=== PATIENT | female | born 1985 | race Two or more races ===

== ENCOUNTER 2020-09-12 13:50 | Outpatient (REF) | payer OTHER, MEDICAID, SELFPAY ==
--- NOTE | 2020-09-12 13:57 | MM_ITS ---
EXAMINATION: MM SCREENING DIGITAL BREAST TOMOSYNTHESIS, BILATERAL CLINICAL INFORMATION: Screening. Asymptomatic. Family history breast cancer sister, age 31, and aunt. The lifetime risk of breast cancer based on the Tyrer-Cuzick Model is 19%. COMPARISON: Mammography: 07/21/2017 (baseline) TECHNIQUE: Digital breast tomosynthesis is performed in both the craniocaudal and mediolateral oblique views along with computer-aided detection (CAD). Synthesized 2D images are generated from the tomosynthesis. FINDINGS: There are scattered areas of fibroglandular density (ACR BI-RADS breast composition Category b). There are no significant masses, abnormal calcifications, or other abnormalities. The axilla and skin contours are unremarkable. MM/MM tomosynthesis screening BI IMPRESSION: No mammographic evidence of malignancy. ASSESSMENT: BI-RADS 1: Negative RECOMMENDATION: Routine annual mammography screening. This patient's information was entered into a reminder system with a target due date for their next mammogram.
== END 2020-09-12 13:51 | disposition home or self-care (01) ==
LOC: HO.MAMMO 13:50
PROVIDERS: PCP Internal Medicine; Visit Provider Internal Medicine
DX: Z12.31 Encounter for screening mammogram for malignant neoplasm of breast (principal)
CPT/HCPCS: 77063; 77067

== ENCOUNTER 2021-08-16 07:15 | Outpatient (REF) | payer OTHER, MEDICAID, SELFPAY ==
[2021-08-16 08:25] LABS: MANUAL DIFF FLAG NO
[2021-08-16 08:31] LABS: Basophils Percent Auto 0.7 % (0-2); Eosinophils Absolute Auto 0.1 X10*3/uL (0.0-0.4); Eosinophils Percent Auto 1.2 % (0-4); Hematocrit 34.5 % (37-47); Hemoglobin 10.9 g/dl (12.0-16.0); Imm Gran Abs Auto 0.02 X10*3/uL (0.00-0.03); Imm Gran Pct Auto 0.3 % (0.0-0.4); Lymphocytes Absolute Auto 2.1 X10*3/uL (1.2-4.9); Lymphocytes Percent Auto 35.1 % (20-40); Mean Corpuscular HGB Conc 31.6 g/dl (31.0-35.0); Mean Corpuscular Hemoglobin 25.6 pg (27.0-33.0); Mean Platelet Volume 9.8 fL (9.4-12.3); Monocytes Absolute Auto 0.2 X10*3/uL (0.1-1.2); Monocytes Percent Auto 3.5 % (2-11); Neutrophils Absolute Auto 3.6 X10*3/uL (2.0-8.3); Neutrophils Percent Auto 59.2 % (45-73); Platelet Count 273 X10*3/uL (160-400); Red Blood Count 4.26 X10*6/uL (4.20-5.50); Red Cell Distribution Width 14.9 % (11.0-16.0)
[2021-08-16 09:06] LABS: Alanine Aminotransferase 13 U/L (0-31); Albumin Level 4.1 g/dL (3.5-5.0); Alkaline Phosphatase 65 U/L (39-117); Anion Gap 11 (12-20); Aspartate Amino Transferase 17 U/L (5-31); Bilirubin Total 0.9 mg/dL (0.0-1.0); Blood Urea Nitrogen 17 mg/dL (9-16); Calcium 8.9 mg/dL (8.4-10.2); Carbon Dioxide 22 mmol/L (22-29); Chloride 111 mmol/L (96-108); Cholesterol 221 mg/dL; Estimated Glomerular Filt Rate > 60; Glucose Random 90 mg/dL (60-115); HDL Cholesterol 58 mg/dL; LDL Cholesterol Calculated 153 mg/dl; Potassium 4.5 mmol/L (3.3-5.1); Sodium 139 mmol/L (135-145); Total Protein 7.4 g/dL (6.5-8.0); Triglycerides 53 mg/dL
[2021-08-16 09:18] LABS: Free T4 (Free Thyroxine) 1.03 ng/dL (0.71-1.85); Thyroid Stimulating Hormone 1.04 uIU/mL (0.32-4.0); Vitamin D 25-OH Total 23.1 ng/mL (>30)
[2021-08-18 09:26] LABS: Folate 8.3 ng/mL (> or = 4.0); Vitamin B12 358 pg/mL (200-900)
== END 2021-08-16 07:16 | disposition home or self-care (01) ==
LOC: HO.LAB 07:15
PROVIDERS: PCP Internal Medicine; Visit Provider Internal Medicine
DX: E03.9 Hypothyroidism, unspecified (principal); E78.00 Pure hypercholesterolemia, unspecified
CPT/HCPCS: 36415; 80053; 80061; 82306; 82607; 82746; 84439; 84443; 85025

== ENCOUNTER 2021-09-24 15:32 | Outpatient (REF) | payer OTHER, MEDICAID, SELFPAY ==
--- NOTE | ~2021-09-24 | MM_ITS ---
EXAMINATION: MM SCREENING DIGITAL BREAST TOMOSYNTHESIS, BILATERAL CLINICAL INFORMATION: Screening. Asymptomatic. Family history premenopausal breast cancer, sister. The lifetime risk of breast cancer based on the Tyrer-Cuzick Model is 13%. COMPARISON: Mammography: 09/12/2020, 07/21/2017 (baseline). TECHNIQUE: Digital breast tomosynthesis is performed in both the craniocaudal and mediolateral oblique views along with computer-aided detection (CAD). Synthesized 2D images are generated from the tomosynthesis. FINDINGS: There are scattered areas of fibroglandular density (ACR BI-RADS breast composition Category b). There are no significant masses, abnormal calcifications, or other abnormalities. Parenchymal pattern is similar to prior study. The axilla and skin contours are unremarkable. MM/MM tomosynthesis screening BI IMPRESSION: No mammographic evidence of malignancy. ASSESSMENT: BI-RADS 1: Negative RECOMMENDATION: Routine annual mammography screening. This patient's information was entered into a reminder system with a target due date for their next mammogram.
== END 2021-09-24 15:33 | disposition home or self-care (01) ==
LOC: HO.MAMMO 15:32
PROVIDERS: Visit Provider Internal Medicine
DX: Z12.31 Encounter for screening mammogram for malignant neoplasm of breast (principal)
CPT/HCPCS: 77063; 77067

== ENCOUNTER → 2022-01-20 15:49 | Outpatient (BNVA) | payer OTHER, MEDICAID, SELFPAY | PROVIDERS: PCP Internal Medicine; Visit Provider Physician Assistant Surgical ==

== ENCOUNTER → 2022-01-21 08:16 | Outpatient (BNVA) | payer OTHER, MEDICAID, SELFPAY | PROVIDERS: PCP Internal Medicine; Visit Provider Physician Assistant Surgical ==

== ENCOUNTER → 2022-02-04 11:00 | Outpatient (BNVA) | payer OTHER, MEDICAID, SELFPAY | PROVIDERS: PCP Internal Medicine; Visit Provider Counselor Mental Health | DX: Z13.89 Encounter for screening for other disorder (principal) ==

== ENCOUNTER → 2022-02-12 08:22 | Outpatient (BNVA) | payer OTHER, MEDICAID, SELFPAY | PROVIDERS: PCP Internal Medicine; Visit Provider Dietitian, Registered | DX: E66.01 Morbid (severe) obesity due to excess calories (principal); Z68.41 Body mass index [BMI] 40.0-44.9, adult | CPT/HCPCS: 97802 ==

== ENCOUNTER 2022-02-18 | Outpatient (REF) | payer OTHER, MEDICAID, SELFPAY ==
[2022-02-21 15:25] LABS: H Pylori Breath Test Positive (Negative)
== END 2022-02-18 00:01 | disposition home or self-care (01) ==
LOC: HO.LNP
PROVIDERS: Physician Assistant Surgical; Visit Provider Surgery
DX: E66.01 Morbid (severe) obesity due to excess calories (principal); Z11.0 Encounter for screening for intestinal infectious diseases
CPT/HCPCS: 36415; 83013

== ENCOUNTER → 2022-02-18 15:50 | Outpatient (BNVA) | payer OTHER, MEDICAID, SELFPAY | PROVIDERS: PCP Internal Medicine; Visit Provider Surgery | DX: Z13.89 Encounter for screening for other disorder (principal) | CPT/HCPCS: 36415 ==

== ENCOUNTER 2022-02-19 07:14 | Outpatient (REF) | payer OTHER, MEDICAID, SELFPAY ==
--- NOTE | ~2022-02-19 | XR_ITS ---
EXAMINATION: XR CHEST 2 VIEWS CLINICAL INFORMATION: Morbid obesity. COMPARISON: None. TECHNIQUE: Frontal and lateral views of the chest were obtained. FINDINGS: The heart, great vessels, pulmonary vasculature and mediastinum are normal. The lungs show no focal infiltrate, effusion or pneumothorax. There is no acute osseous abnormality. XR/XR chest 2V IMPRESSION: No active cardiopulmonary disease.
--- NOTE | 2022-02-19 07:20 | ECG_ITS ---
Test Reason : e66.01 Blood Pressure : / mmHG Vent. Rate : 069 BPM Atrial Rate : 069 BPM P-R Int : 148 ms QRS Dur : 084 ms QT Int : 398 ms P-R-T Axes : 042 012 044 degrees QTc Int : 426 ms Normal sinus rhythm Normal ECG No previous ECGs available Referred By: Aiden Dunlap Electronically Signed By:YURIY AGUILLON
[2022-02-19 07:46] LABS: MANUAL DIFF FLAG NO
[2022-02-19 08:06] LABS: Estimated Average Glucose 100 mg/dL; Hemoglobin A1c % 5.1 %
[2022-02-19 08:16] LABS: Basophils Percent Auto 0.8 % (0-2); Eosinophils Absolute Auto 0.1 X10*3/uL (0.0-0.4); Eosinophils Percent Auto 1.8 % (0-4); Hematocrit 36.4 % (37.0-47.0); Hemoglobin 11.7 g/dl (12.0-16.0); Imm Gran Abs Auto 0.01 X10*3/uL (0.00-0.03); Imm Gran Pct Auto 0.3 % (0.0-0.4); Immature Retic Fraction 6.5 % (3.0-15.9); Lymphocytes Absolute Auto 1.4 X10*3/uL (1.2-4.9); Lymphocytes Percent Auto 35.2 % (20-40); Mean Corpuscular HGB Conc 32.1 g/dl (31.0-35.0); Mean Corpuscular Hemoglobin 26.6 pg (27.0-33.0); Mean Corpuscular Volume 82.7 fL (80.0-98.0); Mean Platelet Volume 9.9 fL (9.4-12.3); Monocytes Absolute Auto 0.2 X10*3/uL (0.1-1.2); Monocytes Percent Auto 5.9 % (2-11); Neutrophils Absolute Auto 2.2 x10*3/uL (2.0-8.3); Platelet Count 248 X10*3/uL (160-400); Red Cell Distribution Width 15.9 % (11.0-16.0); Reticulocyte Percent 0.9 % (0.5-1.8); White Blood Count 3.9 X10*3/uL (4.8-10.8)
[2022-02-19 08:23] LABS: Alanine Aminotransferase 27 U/L (0-31); Albumin Level 4.1 g/dL (3.5-5.0); Alkaline Phosphatase 54 U/L (39-117); Anion Gap 9 (12-20); Aspartate Amino Transferase 24 U/L (5-31); Bilirubin Total 0.9 mg/dL (0.0-1.0); Blood Urea Nitrogen 21 mg/dL (9-16); Calcium 9.2 mg/dL (8.4-10.2); Carbon Dioxide 26 mmol/L (22-29); Chloride 109 mmol/L (96-108); Cholesterol 208 mg/dL; Estimated Glomerular Filt Rate > 60; Glucose Random 97 mg/dL (60-115); HDL Cholesterol 46 mg/dL; Iron 40 mcg/dL (30-160); LDL Cholesterol Calculated 146 mg/dl; Percent Iron Saturation 10 % (15-50); Potassium 4.2 mmol/L (3.3-5.1); Sodium 140 mmol/L (135-145); Total Iron Binding Capacity 401 mcg/dL (228-428); Total Protein 7.4 g/dL (6.5-8.0); Triglycerides 81 mg/dL; Unsaturated Iron Binding 361 ug/dL
[2022-02-19 08:42] LABS: Ferritin 13 ng/mL (10-122); Free T4 (Free Thyroxine) 1.24 ng/dL (0.71-1.85); TSH reflex Free T4 1.08 uIU/mL (0.32-4.0); Thyroid Stimulating Hormone 1.14 uIU/mL (0.32-4.0)
[2022-02-19 08:59] LABS: Folate 12.2 ng/mL (> or = 4.0); Vitamin B12 537 pg/mL (200-900)
[2022-02-20 14:32] LABS: Calcium (PTHI) 9.4 mg/dL (8.6-10.2); PTHI 90 pg/mL (16-77)
[2022-02-24 15:56] LABS: Zinc 76 mcg/dL (60-130)
[2022-02-25 11:46] LABS: Vitamin A 47 mcg/dL (38-98)
== END 2022-02-19 07:15 | disposition home or self-care (01) ==
LOC: HO.XRAY 07:14
PROVIDERS: Absent Provider Physician Assistant Surgical; PCP Internal Medicine; Visit Provider Internal Medicine
DX: Z01.818 Encounter for other preprocedural examination (principal); E66.01 Morbid (severe) obesity due to excess calories; D64.9 Anemia, unspecified; E78.00 Pure hypercholesterolemia, unspecified
CPT/HCPCS: 36415; 71046; 80053; 80061; 82607; 82728; 82746; 83036; 83540; 83970; 84439; 84443; 84590; 84630; 85025; 85045; 93005

== ENCOUNTER → 2022-02-20 08:05 | Outpatient (BNVA) | payer OTHER, MEDICAID, SELFPAY | PROVIDERS: PCP Internal Medicine; Visit Provider Surgery | DX: Z13.89 Encounter for screening for other disorder (principal) ==

== ENCOUNTER 2022-03-04 09:12 | Outpatient (REF) | payer OTHER, MEDICAID, SELFPAY ==
--- NOTE | ~2022-03-04 | FL_ITS ---
EXAMINATION: XR FLUOROSCOPY UPPER GI WITH AIR CLINICAL INFORMATION: Morbid/severe obesity COMPARISON: None TECHNIQUE: Routine upper GI air-contrast study was performed in upright and lying position. FINDINGS: Following oral administration of thick barium and effervescent granules there is normal probation bolus from the oral cavity through the pharynx, esophagus into stomach without any evidence of obstruction, narrowing or stricture. The course, caliber and peristalsis of the stomach and duodenal bulb is normal. There is mild gastroesophageal reflux but no hiatal hernia seen. FLUOROSCOPY TIME: 4.1 minutes DOSE AREA PRODUCT: 49.065 uGy-m2 (microgray-meter squared) FL/FL upper GI w air IMPRESSION: Mild gastroesophageal reflux without hiatal hernia. Rest of the upper GI exam is unremarkable.
--- NOTE | ~2022-03-04 | US_ITS ---
EXAMINATION: US COMPLETE ABDOMEN WITH LIVER ELASTOGRAPHY CLINICAL INFORMATION: Bariatric service evaluation. E66.01. COMPARISON: None. TECHNIQUE: Real-time imaging of the abdominal viscera. Noninvasive ultrasound liver fibrosis assessment is performed using Bong ElastPQ point quantification shear wave elastography (2D-SWE) with a C5-2 MHz transducer. Multiple elastography samples are obtained. FINDINGS: PANCREAS: The visualized pancreas shows no mass or ductal dilatation. There are portions of the body and tail obscured by bowel gas and not completely imaged. ABDOMINAL AORTA: The proximal, middle, and distal aortic segments are normal in caliber. INFERIOR VENA CAVA: Visualized portions are normal. LIVER: The liver is normal in size and smooth in contour. There is mild increased hepatic parenchymal echogenicity suggesting hepatic steatosis. No focal hepatic parenchymal lesion or intrahepatic ductal dilatation. The right lobe measures 13.0 cm in length. The left lobe measures 7.9 cm in length. Portal flow is towards the liver (hepatopetal). Shear wave liver elastography median stiffness is 1.41 m/s (reference: normal median stiffness is 1.3 m/s or less). IQR/median stiffness to assess sampling precision is 0.18 (reference: good quality data set is IQR/median stiffness of 0.15 or less). GALLBLADDER: There is a solitary polyp in the dependent gallbladder projecting into the lumen measuring 4 x 5 x 6 mm in diameter. There is no gallbladder wall thickening. No stone or sludge or pericholecystic fluid. Negative sonographic Fuchs's sign. COMMON BILE DUCT: Normal in caliber measuring 0.3 cm in diameter. RIGHT KIDNEY: Normal. No hydronephrosis. No renal calculi or focal parenchymal lesions. The kidney measures 11.6 cm in maximum dimension. LEFT KIDNEY: Left kidney measures 10.8 cm in length. There is no hydronephrosis or calculi. Normal renal parenchymal thickness. There is a solitary hyperechoic mass upper to midpole measuring 3.1 cm in diameter. Statistically, this is likely an angiomyolipoma but additional MR imaging without and with contrast is recommended to confirm. SPLEEN: Normal. The spleen measures 10.0 cm in maximum dimension. FREE FLUID: None. US/US abdomen comp w elastography IMPRESSION: - Left Kidney: Solid hyperechoic mass 3.1 cm, likely angiomyolipoma. Recommend further characterization with MRI without and with gadolinium contrast. -Liver: Mild hepatic steatosis. No focal parenchymal lesion. -Liver elastography: Although measurements appear to rule out compensated advanced chronic liver disease, there is statistical variability of the sampling which decreases accuracy. -Gallbladder: Solitary polyp, 5 mm. No stone or wall thickening. No ductal dilatation. REFERENCE: Society of Radiologists in Ultrasound Liver Stiffness Thresholds (2020): LIVER STIFFNESS THRESHOLDS: *Liver Stiffness equal or less than 1.3 m/s: High probability of being normal. *Liver Stiffness less than 1.7 m/s: In the absence of other known clinical signs, rules out compensated advanced chronic liver disease. *Liver Stiffness 1.7-2.1 m/s: Suggestive of compensated advanced chronic liver disease but need further test for confirmation. *Liver Stiffness over 2.1 m/s: Rules in compensated advanced chronic liver disease. *Liver Stiffness over 2.4 m/s: Suggestive of clinically significant portal hypertension. QUALITY OF DATA SET: *IQR/Median value equal or less than 0.15 implies a quality data set. *IQR/Median value over 0.15 implies a poor quality data set. SIGNIFICANT CHANGE FROM PRIOR EXAM: Significant change if liver stiffness measurement is 10% or greater from prior exam. OTHER CONSIDERATIONS: The stage of liver fibrosis may be overestimated in the setting of acute hepatitis, liver inflammation, elevated liver function tests, hepatic vascular congestion, obstructive cholestasis, non-fasting state, and infiltrative diseases such as amyloidosis and lymphoma. In some patients with NAFLD, the liver stiffness thresholds for compensated advanced chronic liver disease may be lower. In causes other than viral hepatitis and NAFLD, liver stiffness thresholds are not well established.
[2022-03-04 11:19] LABS: C Reactive Protein 0.44 mg/dL (< or = 0.50)
[2022-03-04 11:29] LABS: Vitamin D 25-OH Total 26.7 ng/mL (>30)
[2022-03-04 12:27] LABS: Insulin 8 uU/mL (2-29)
[2022-03-10 17:22] LABS: Vitamin B1 8 nmol/L (8-30)
== END 2022-03-04 09:13 | disposition home or self-care (01) ==
LOC: HO.US 09:12
PROVIDERS: Surgery; PCP Internal Medicine; Visit Provider Physician Assistant Surgical
DX: E66.01 Morbid (severe) obesity due to excess calories (principal); D64.9 Anemia, unspecified; E55.9 Vitamin D deficiency, unspecified
CPT/HCPCS: 36415; 74246; 76705; 76981; 82306; 83525; 84425; 86140

== ENCOUNTER → 2022-03-23 09:23 | Outpatient (BNVA) | payer OTHER, MEDICAID, SELFPAY | PROVIDERS: PCP Internal Medicine; Visit Provider Surgery | DX: Z13.89 Encounter for screening for other disorder (principal) ==

== ENCOUNTER 2022-09-01 11:34 | Outpatient (REF) | payer OTHER, MEDICAID, SELFPAY ==
[2022-09-02 12:43] LABS: BV Int Neg Control Negative (Negative); BV Int Pos Control Positive (Positive)
== END 2022-09-01 11:35 | disposition home or self-care (01) ==
LOC: HO.LAB 11:34
PROVIDERS: Visit Provider Emergency Medicine
DX: N89.8 Other specified noninflammatory disorders of vagina (principal)
CPT/HCPCS: 87480; 87510; 87660

== ENCOUNTER 2022-10-19 14:45 | Outpatient (REF) | payer OTHER, MEDICAID, SELFPAY ==
--- NOTE | ~2022-10-19 | MM_ITS ---
EXAMINATION: MM SCREENING DIGITAL BREAST TOMOSYNTHESIS, BILATERAL CLINICAL INFORMATION: Screening. Asymptomatic. Family history with premenopausal breast cancer. The lifetime risk of breast cancer based on the Tyrer-Cuzick Model is 18%. COMPARISON: Mammography: 09/24/2021, 09/12/2020 07/21/2017 a TECHNIQUE: Digital mammography is performed in craniocaudal and mediolateral oblique views along with computer-aided detection (CAD). Digital breast tomosynthesis is performed in implant-displaced craniocaudal and implant-displaced mediolateral oblique views along with computer-aided detection (CAD). Synthesized 2D images are generated from the tomosynthesis. FINDINGS: There are scattered areas of fibroglandular density (ACR BI-RADS breast composition Category b). There are interval bilateral implants since prior exam. Implant contours are smooth. There is no interval mass or architectural abnormality. No abnormal calcifications. The axilla and skin contours are unremarkable. MM/MM tomosynthesis screen imp BI IMPRESSION: No mammographic evidence of malignancy. ASSESSMENT: BI-RADS 2: Benign RECOMMENDATION: Routine annual mammography screening. This patient's information was entered into a reminder system with a target due date for their next mammogram.
== END 2022-10-19 14:46 | disposition home or self-care (01) ==
LOC: HO.MAMMO 14:45
PROVIDERS: PCP Internal Medicine; Visit Provider Internal Medicine
DX: Z12.31 Encounter for screening mammogram for malignant neoplasm of breast (principal)
CPT/HCPCS: 77063; 77067

== ENCOUNTER 2023-01-20 15:44 | Outpatient (REF) | payer OTHER, MEDICAID, SELFPAY ==
[2023-01-20 17:53] LABS: Appearance Urine Cloudy; Color Urine Yellow; Glucose Urine UA Negative (Negative); Leukocyte Esterase Urine Small (1+) (Negative); Nitrite Urine Positive (Negative); Specific Gravity - Urine >= 1.030 (1.005-1.025); UMIC TRIGGER UACC YES; Urine Blood Negative (Negative); Urine Ketones 15 mg/dL (Negative); Urine Protein Trace mg/dL (Neg-Trace)
[2023-01-20 17:55] LABS: Bacteria Urine 4+ (None Seen); RBC Urine 0-2 /HPF (0-2); UACC Culture Trigger YES; WBC Urine >50 /HPF (0-5)
== END 2023-01-20 15:45 | disposition home or self-care (01) ==
LOC: HO.LAB 15:44
PROVIDERS: PCP Internal Medicine; Visit Provider Internal Medicine
DX: N39.0 Urinary tract infection, site not specified (principal)
CPT/HCPCS: 81001; 87086; 87088; 87186

== ENCOUNTER 2023-05-07 15:52 | Outpatient (REF) | payer OTHER, MEDICAID, SELFPAY ==
[2023-05-07 17:21] LABS: Appearance Urine Clear; Color Urine Yellow; Glucose Urine UA Negative (Negative); Leukocyte Esterase Urine Small (1+) (Negative); Nitrite Urine Positive (Negative); PH 5.5 (5.0-9.0); Specific Gravity - Urine 1.025 (1.005-1.025); UMIC TRIGGER UACC YES; Urine Blood Large (3+) (Negative); Urine Ketones Negative (Negative); Urine Protein Negative (Neg-Trace)
[2023-05-07 17:36] LABS: Bacteria Urine 4+ (None Seen); Hyaline Casts Urine 0-2 /LPF (0-2); RBC Urine 0-2 /HPF (0-2); UACC Culture Trigger YES; WBC Urine >50 /HPF (0-5)
== END 2023-05-07 15:53 | disposition home or self-care (01) ==
LOC: HO.LAB 15:52
PROVIDERS: PCP Internal Medicine; Visit Provider Internal Medicine
DX: R39.9 Unspecified symptoms and signs involving the genitourinary system (principal)
CPT/HCPCS: 81001; 87086; 87088; 87186

== ENCOUNTER 2023-10-29 15:42 | Outpatient (REF) | payer MEDICAID, SELFPAY ==
--- NOTE | ~2023-10-29 | MM_ITS ---
EXAMINATION: MM SCREENING DIGITAL BREAST TOMOSYNTHESIS, BILATERAL CLINICAL INFORMATION: Screening. Asymptomatic. COMPARISON: Mammography: This study is compared with prior mammograms dating back to 2017. TECHNIQUE: Digital mammography is performed in craniocaudal and mediolateral oblique views along with computer-aided detection (CAD). Digital breast tomosynthesis is performed in implant-displaced craniocaudal and implant-displaced mediolateral oblique views along with computer-aided detection (CAD). Synthesized 2D images are generated from the tomosynthesis. FINDINGS: There are scattered areas of fibroglandular density (ACR BI-RADS breast composition Category b). There are bilateral, retroglandular, mammographically intact silicone breast implants. There are no significant masses, abnormal calcifications, or other abnormalities. MM/MM tomosynthesis screen imp BI IMPRESSION: There are no significant changes from prior study. ASSESSMENT: BI-RADS BI-RADS 1 - Negative RECOMMENDATION: Routine annual mammography screening. 1 year F/U This patient's information was entered into a reminder system with a target due date for their next mammogram.
== END 2023-10-29 15:43 | disposition home or self-care (01) ==
LOC: HO.MAMMO 15:42
PROVIDERS: PCP Internal Medicine; Visit Provider Internal Medicine
DX: Z12.31 Encounter for screening mammogram for malignant neoplasm of breast (principal)
CPT/HCPCS: 77063; 77067

== ENCOUNTER → 2023-10-29 16:00 | Outpatient (BNV) | payer MEDICAID, SELFPAY | PROVIDERS: PCP Internal Medicine; Visit Provider Radiology Diagnostic Radiology | DX: Z12.31 Encounter for screening mammogram for malignant neoplasm of breast (principal) | CPT/HCPCS: 77063; 77067 ==

== ENCOUNTER 2024-02-05 07:53 | Outpatient (REF) | payer MEDICAID, SELFPAY ==
[2024-02-05 08:08] LABS: MANUAL DIFF FLAG NO
[2024-02-05 08:37] LABS: Basophils Percent Auto 0.7 % (0-2); Eosinophils Absolute Auto 0.1 X10*3/uL (0.0-0.4); Eosinophils Percent Auto 1.9 % (0-4); Hematocrit 37.9 % (37.0-47.0); Hemoglobin 12.3 g/dl (12.0-16.0); Imm Gran Abs Auto 0.05 X10*3/uL (0.00-0.03); Imm Gran Pct Auto 0.8 % (0.0-0.4); Lymphocytes Absolute Auto 2.1 X10*3/uL (1.2-4.9); Mean Corpuscular HGB Conc 32.5 g/dl (31.0-35.0); Mean Corpuscular Volume 89.4 fL (80.0-98.0); Monocytes Absolute Auto 0.3 X10*3/uL (0.1-1.2); Monocytes Percent Auto 4.9 % (2-11); Neutrophils Absolute Auto 3.3 x10*3/uL (2.0-8.3); Neutrophils Percent Auto 55.7 % (45-73); Platelet Count 253 X10*3/uL (160-400); Red Blood Count 4.24 X10*6/uL (4.20-5.50); Red Cell Distribution Width 13.1 % (11.0-16.0); White Blood Count 5.9 X10*3/uL (4.8-10.8)
[2024-02-05 09:05] LABS: Alanine Aminotransferase 29 U/L (0-31); Alkaline Phosphatase 63 U/L (39-117); Anion Gap 8 (12-20); Aspartate Amino Transferase 26 U/L (5-31); Bilirubin Total 0.4 mg/dL (0.0-1.0); Blood Urea Nitrogen 15 mg/dL (9-16); Calcium 9.1 mg/dL (8.4-10.2); Carbon Dioxide 26 mmol/L (22-29); Chloride 112 mmol/L (96-108); Cholesterol 235 mg/dL (<200); Estimated Glomerular Filt Rate > 60; Glucose Random 97 mg/dL (60-115); HDL Cholesterol 59 mg/dL (>40); Iron 50 mcg/dL (30-160); LDL Cholesterol Calculated 159 mg/dL (<100); Percent Iron Saturation 16 % (15-50); Potassium 4.2 mmol/L (3.3-5.1); Sodium 142 mmol/L (135-145); Total Iron Binding Capacity 322 mcg/dL (228-428); Total Protein 7.6 g/dL (6.5-8.0); Triglycerides 85 mg/dL (<150); Unsaturated Iron Binding 272 ug/dL
[2024-02-05 09:23] LABS: Ferritin 16 ng/mL (10-122); Free T4 (Free Thyroxine) 0.89 ng/dL (0.71-1.85); Thyroid Stimulating Hormone 2.38 uIU/mL (0.32-4.0)
[2024-02-05 09:27] LABS: Folate 14.1 ng/mL (> or = 4.0); Vitamin B12 609 pg/mL (200-900)
== END 2024-02-05 07:54 | disposition home or self-care (01) ==
LOC: HO.LAB 07:53
PROVIDERS: PCP Internal Medicine; Visit Provider Internal Medicine
DX: E03.9 Hypothyroidism, unspecified (principal); E78.00 Pure hypercholesterolemia, unspecified
CPT/HCPCS: 36415; 80053; 80061; 82607; 82728; 82746; 83540; 84439; 84443; 85025

== ENCOUNTER 2024-02-15 10:51 | Outpatient (AMB) | payer OTHER, SELFPAY ==
[2024-02-15 10:59] VITALS: BP 114/72; PULSE 65; O2SAT 99; BMI 43.3
--- NOTE | 2024-02-15 10:59 | MHC.PC.OV ---
Vital Signs 02/15/24 10:59 Height 5 ft 1 in Weight 229 lb 0.2 oz BMI 43.3 BP 114/72 Blood Pressure Location Lt brachial Position Sitting Pulse 65 Pulse Source Pulse Oximeter Pulse Oximetry (%) 99 Oxygen Delivery Method Room Air Intake Visit Reasons: Physical Exam Intake Note: Patient is here today for a physical. Student Records Coordinator Required: No Allergies No Known Allergies [No Known Allergies*] Allergy (Verified 02/15/24 10:59) Medication List - Last Reconciled 02/15/24 by Su Mac MD levothyroxine 137 mcg PO DAILY Tobacco use date assessed: 02/15/24 Dental Screening Dental Screen Date: 02/15/24 Did you have a dental visit in the last 12 months?: Yes Did you have a dental problem in the last 6 months where you did not have access to dental care?: No Was dental information given to patient?: Patient has dentist HPI Physical Exam HPI Details 38-year-old morbidly obese female with a history of hypercholesterolemia hypothyroidism last seen 2021. Patient is here for physical exam. tiredness [facility] Medical History (Updated 02/15/24 @ 11:44 by Su Mac MD) BMI 39.0-39.9,adult COVID-19 virus infection Hypercholesterolemia Obesity Hypothyroid Surgical History (Updated 02/15/24 @ 11:34 by Su Mac MD) H/O abdominoplasty H/O breast augmentation History of tubal ligation Family History Mother No problems noted. Father No problems noted. Brother No problems noted. Sister Breast cancer Son No problems noted. Son No problems noted. Son No problems noted. Son No problems noted. Son No problems noted. Daughter No problems noted. Paternal Aunt Breast cancer Social History Housing: House Alcohol intake: never Patient Tobacco Use Status: Never used Tobacco e-Cigarette/Vaping Use: Never Used Second Hand Smoke Exposure: No service: No Current occupational status: employed Cognitive needs: No Hearing needs: No Vision needs: No Questionnaire PHQ-9 Over the last 2 weeks, how often have you been bothered by any of the following problems? 1. Little interest or pleasure in doing things: not at all 2. Feeling down, depressed, or hopeless: not at all 3. Trouble falling or staying asleep, or sleeping too much: not at all 4. Feeling tired or having little energy: not at all 5. Poor appetite or overeating: not at all 6. Feeling bad about yourself - or that you are a failure or have let yourself or your family down: not at all 7. Trouble concentrating on things, such as reading the newspaper or watching television: not at all 8. Moving or speaking so slowly that other people could have noticed. Or the opposite - being so fidgety or restless that you have been moving around a lot more than usual: not at all 9. Thoughts that you would be better off or of hurting yourself in some way: not at all Total score: 0 Source: Developed by Drs. Anthony Garrett, Maricarmen Hendrix, Angelo Davidson and colleagues, with an educational ambrosio from [employer]. Thrive Questionnaire Date Thrive assessed: 02/15/24 I am a: Patient What is your living situation today?: I have a steady place to live Within the past 12 months, did the food you bought not last and you didn't have the money to get more?: Never true Within the past 12 months, did you worry whether your food would run out before you got money to buy more?: Never true Do you have trouble paying for medicines?: No Do you have trouble getting transportation to medical appointments?: No Do you have trouble paying your heating and electricity bill?: No Do you have trouble taking care of your child, family member or friend?: No Do you have trouble with day-to-day activities such as bathing, preparing meals, shopping, managing finances, etc.?: No Are you currently unemployed and looking for a job?: No Are you interested in more education?: No Please select the resources that you would like help with: None THRIVE Score: 0 AUDIT C Alcohol Use Questionnaire (AUDIT-C) 1. How often do you have a drink containing alcohol?: Never 3. How often do you have six or more drinks on one occasion?: Never Total Score: 0 WILI-7 AMB Questionnaire WILI-7 Date WILI - 7 assessed: 02/15/24 Feeling nervous, anxious, or on edge: 0 = Not at all Not being able to stop or control worryin = Not at all Worrying too much about different things: 0 = Not at all Trouble relaxin = Not at all Being so restless that it is hard to sit still: 0 = Not at all Becoming easily annoyed or irritable: 0 = Not at all Feeling afraid as if something awful might happen: 0 = Not at all Total WILI-7 score (0-4 normal; 5-9 mild; 10-14 moderate; 15-21 severe): 0 Source: Developed by Drs. Anthony Garrett, Maricarmen Hendrix, Angelo Davidson and colleagues, with an educational ambrosio from [employer]. Review of Systems Const Denies poor appetite and Denies weakness Eyes Denies no additional complaints ENT Reports Normal hearing present, Denies dizziness, Denies nasal congestion, Denies tinnitus and Denies sore throat Card Denies chest pain, Denies syncope, Denies rapid heart rate and Denies dyspnea Resp Denies cough and Denies dyspnea GI Denies change in stool character, Reports constipation, Denies diarrhea, Denies nausea and Denies vomiting Denies urinary frequency, Denies difficulty voiding and Denies dysuria Neuro Reports Normal hearing present, Denies confusion, Denies dizziness, Denies syncope and Denies weakness Psych Denies confusion Physical exam (Primary Care) Vital Signs: Last Vital Signs Pulse 65 02/15/24 10:59 BP 114/72 02/15/24 10:59 Pulse Ox 99 02/15/24 10:59 Oxygen Delivery Method Room Air 02/15/24 10:59 BMI result Body Mass Index 43.3 Tobacco/Smoking Status: Tobacco use Status Tobacco use date assessed 02/15/24 02/15/24 11:00 Patient Tobacco Use Status Never used Tobacco 02/15/24 11:00 e-Cigarette/Vaping Use Never Used 02/15/24 11:00 PHQ-9: PHQ-9 Score PHQ-9: Total score 0 02/15/24 11:05 Thrive Assessment: Date of Thrive Assessment Date Thrive assessed 02/15/24 02/15/24 11:00 Const General: No confusion Orientation/consciousness: No confusion HENMT Head: Yes normocephalic Ears: external ears normal and TM's normal bilaterally Face and sinus: Yes normal facial exam Mouth: moist mucous membranes Throat: Yes tonsils normal Eyes Conjunctivae: conjunctivae normal Pupils: Equal, round and reactive pupils present and Pupil accommodation reflex normal Direct Ophthalmoscopy: normal light reflex Neck Neck: No lymphadenopathy Thyroid: Thyroid normal Chest Chest palpation & inspection: normal inspection of the chest Resp Effort & Inspection: normal respiratory effort and no audible wheezes Auscultation: clear to auscultation bilaterally, no crackles, no wheezes and lung sounds not diminished Cardio Rate: regular rate Rhythm: regular rhythm Peripheral pulses: radial pulses present and dorsalis pedis present GI Palpation (GI): no masses Auscultation: normal bowel sounds and normoactive bowel sounds Rectal Exam - Female: deferred Skin General skin exam: no rashes or lesions noted Rashes: no rashes Neuro General: No confusion Cranial nerves: Yes Equal, round and reactive pupils present and Yes Normal hearing present Cognition (Neuro): normal cognition Gait exam (Neuro): Normal gait present Motor exam (neuro): 5/5 motor strength present throughout Deep tendon reflexes (DTR's): Right brachioradialis reflex intensity grade: 2+, Left brachioradialis reflex intensity grade: 2+, Right patellar reflex intensity grade: 2+ and Left patellar reflex intensity grade: 2+ Extrem General: No edema Assessment and Plan Assessment & Plan (1) Annual physical exam: Code(s): Z00.00 - Encounter for general adult medical examination without abnormal findings (2) Anemia: Code(s): D64.9 - Anemia, unspecified Plan: Continue to monitor (3) Hypothyroid: Code(s): E03.9 - Hypothyroidism, unspecified Qualifiers: Hypothyroidism type: acquired Qualified Code(s): E03.9 - Hypothyroidism, unspecified Plan: Continue with thyroid medication (4) Hypercholesterolemia: Code(s): E78.00 - Pure hypercholesterolemia, unspecified Plan: Avoid fried foods, chicken skin, eggs, butter margarine, pastries and meat. Be it pork or beef they have a lot of cholesterol LDL goal of less than 130 and triglyceride of less than 150 (5) Morbid obesity: Code(s): E66.01 - Morbid (severe) obesity due to excess calories Plan: Diet and exercise (6) Hypersomnia: Code(s): G47.10 - Hypersomnia, unspecified (7) Cervical cancer screening: Code(s): Z12.4 - Encounter for screening for malignant neoplasm of cervix Orders: Orders RT home sleep study Today Referrals CRIMINAL ATTORNEY Referral Z12.4 - Encounter for screening for malignant neoplasm of cervix Coding Level of Care Code Est Pt Prev Care [id number]) Diagnoses Annual physical exam Z00.00 Anemia D64.9 Acquired hypothyroidism E03.9 Hypothyroidism type: acquired Hypercholesterolemia E78.00 Morbid obesity E66.01 Hypersomnia G47.10 Cervical cancer screening Z12.4
== END 2024-02-15 11:48 | disposition home or self-care (01) ==
PROVIDERS: PCP Internal Medicine; Visit Provider Internal Medicine
DX: Z00.00 Encounter for general adult medical examination without abnormal findings (principal); E66.01 Morbid (severe) obesity due to excess calories; Z68.41 Body mass index [BMI] 40.0-44.9, adult; D64.9 Anemia, unspecified; E03.9 Hypothyroidism, unspecified; E78.00 Pure hypercholesterolemia, unspecified; G47.10 Hypersomnia, unspecified
CPT/HCPCS: 99395

== ENCOUNTER 2024-05-19 16:37 | Outpatient (REF) | payer OTHER, SELFPAY ==
[2024-05-19 18:09] LABS: Appearance Urine Clear; Color Urine Orange; Glucose Urine UA 100 mg/dL (Negative); Leukocyte Esterase Urine Trace (Negative); Nitrite Urine Positive (Negative); Specific Gravity - Urine 1.015 (1.005-1.025); UMIC TRIGGER UACC YES; Urine Blood Negative (Negative); Urine Ketones Negative (Negative); Urine Protein 30 (1+) mg/dL (Neg-Trace)
[2024-05-19 18:26] LABS: Bacteria Urine 4+ (None Seen); Hyaline Casts Urine 0-2 /LPF (0-2); RBC Urine 0-2 /HPF (0-2); Squamous Epithelial Cell Urine 0-2 /HPF (0-2); UACC Culture Trigger YES
[2024-05-19 18:27] LABS: WBC Urine 0-5 /HPF (0-5)
== END 2024-05-19 16:38 | disposition home or self-care (01) ==
LOC: HO.LAB 16:37
PROVIDERS: PCP Internal Medicine; Visit Provider Internal Medicine
DX: R39.9 Unspecified symptoms and signs involving the genitourinary system (principal); R82.90 Unspecified abnormal findings in urine
CPT/HCPCS: 81001; 87086; 87088; 87186

== ENCOUNTER 2024-07-06 07:29 | Outpatient (REF) | payer OTHER, SELFPAY ==
[2024-07-11 13:49] LABS: HPV mRNA E6/E7 Detected (Not Detected)
== END 2024-07-06 07:30 | disposition home or self-care (01) ==
LOC: HO.LNP 07:29
PROVIDERS: PCP Internal Medicine; Visit Provider Obstetrics & Gynecology
DX: Z01.419 Encounter for gynecological examination (general) (routine) without abnormal findings (principal); R87.612 Low grade squamous intraepithelial lesion on cytologic smear of cervix (LGSIL); Z80.3 Family history of malignant neoplasm of breast
CPT/HCPCS: 87624; 88175; 99385

== ENCOUNTER 2024-07-06 07:29 | Outpatient (AMB) | payer OTHER, SELFPAY ==
[2024-07-06 07:36] VITALS: BP 116/72; BMI 42.7
--- NOTE | 2024-07-06 07:36 | A.OFFVIS_ITS ---
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 No complaints. Last Pap/HPV 60 years ago was negative Last Mammogram was BI-RADS 1 in 11/13 [facility] Medical History BMI 39.0-39.9,adult COVID-19 virus infection Hypercholesterolemia Obesity Hypothyroid Surgical History H/O abdominoplasty H/O breast augmentation History of tubal ligation Family History (Updated 07/06/24 @ 07:40 by Azucena Triplett CMA) Mother No problems noted. Father Diabetes HTN (hypertension) Brother No problems noted. Sister Breast cancer Son No problems noted. Son No problems noted. Son No problems noted. Son No problems noted. Son No problems noted. Daughter No problems noted. 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 Sexually active: Yes Sexual orientation: Straight/Heterosexual Gender identity: Female Cognitive needs: No Hearing needs: No Vision needs: No Female Reproductive History Menstrual Date of last menstrual period: 06/16/24 control method: permanent sterilization Total pregnancies: 8 Full term: 6 Number of Living Children: 6 Ab induced: 2 Review of Systems Const All systems reviewed & are unremarkable except as noted in HPI and below Card Reports as per HPI Resp Reports as per HPI GI Reports as per HPI and Reports no additional complaints Reports as per HPI Physical Exam Vital Signs: Last Vital Signs BP 116/72 07/06/24 07:36 BMI result Body Mass Index 42.7 Const General: cooperative, healthy appearing and comfortable Chest Chest palpation & inspection: normal inspection of the chest and normal palpation of entire chest wall Breast/axilla inspection: normal inspection of the breasts and normal inspection of the axillae Breast/axilla palpation: normal palpation of the breasts, normal palpation of the axillae and no axillary lymphadenopathy Resp Effort & Inspection: normal respiratory effort Auscultation: clear to auscultation bilaterally Percussion: percussion normal Cardio Palpation: normal PMI Rate: regular rate Rhythm: regular rhythm Heart sounds: no murmurs and no rubs Peripheral pulses: Peripheral pulses 2+ throughout GI Inspection: Yes normal to inspection Palpation (GI): Soft to palpation, nontender, no guarding, not rigid and No hepatosplenomegaly present Percussion: Yes normal to percussion Auscultation: normal bowel sounds Rectal Exam - Female: deferred General: Yes bladder normal to palpation External Female Exam: No lesion Speculum Exam - Vagina: normal appearance of the vagina, normal palpation, normal vaginal discharge and not erythematous Speculum Exam - Cervix: normal appearance of the cervix and normal palpation Bimanual exam- vagina & uterus: normal bimanual exam, normal palpation, uterine size normal, bladder normal to palpation, consistency normal and normal palpa tion Bimanual Exam- Adnexa, other: normal adnexae, no masses and no tenderness Assessment & Plan Assessment & Plan (1) Well woman exam: Code(s): Z01.419 - Encounter for gynecological examination (general) (routine) without abnormal findings Category: Medical Plan: Cotesting done. Instructions given the patient to schedule next screening Mammogram in 11/14. Counseled the patient about the recommended dietary allowance of 1000 mg of Calcium & 600 IU of vitamin D. The patient was instructed to perform monthly self-breast exams and to schedule an annual exam in a year; All questions answered and the patient verbalized understanding. Instructed the patient to schedule annual exam in a year (2) Family history of breast cancer: Code(s): Z80.3 - Family history of malignant neoplasm of breast Category: Medical Plan: Discussed with the patient her increased risk for Breast ca. The lifetime risk of breast cancer based on the Tyrer-Cuzick Model is 28.4% Recommended Intensification of breast Cancer screening with annual MRI breast in addition to annual mammogram and MRI alternating every 6 months. Mammogram done recently , Breast MRI ordered Will refer to Dr Person for possible Genetic Ca counseling and possible test ing, in addition to counseling regarding Chemoprevention strategies All questions answered, the patient verbalized understanding and agreed with the plan Orders: Orders MR breast BI wo/w con Today Z80.3 - Family history of malignant neoplasm of breast PAP + HPV E6/E7 rfx 18/45 Today Z01.419 - Encounter for gynecological examination (general) (routine) without abnormal findings Referrals General Surgery Referral Z91.89 - Other specified personal risk factors, not elsewhere classified Coding Level of Care Code New Pt Prev Care 18-39yr(43315 Diagnoses Well woman exam Z01.419 Family history of breast cancer Z80.3
== END 2024-07-06 08:04 | disposition home or self-care (01) ==
PROVIDERS: PCP Internal Medicine; Visit Provider Obstetrics & Gynecology
DX: Z01.419 Encounter for gynecological examination (general) (routine) without abnormal findings (principal); Z80.3 Family history of malignant neoplasm of breast
CPT/HCPCS: 99385

== ENCOUNTER 2024-07-12 15:38 | Outpatient (REF) | payer OTHER, SELFPAY ==
--- NOTE | ~2024-07-12 | US_ITS ---
EXAMINATION: US PELVIS CLINICAL INFORMATION: Enlarged uterus, last menstrual period 07/07/2024. COMPARISON: None available. TECHNIQUE: Ultrasound of the pelvis is performed using both transabdominal and transvaginal transducers along with Doppler. Transvaginal imaging is performed due to inadequate visualization transabdominally. FINDINGS: The uterus is anteverted and measures 7.9 x 4.5 x 5.2 cm. Double wall endometrial thickness is 11 mm. Small amount of fluid within the endometrial cavity. Nabothian cysts in the cervix. Right ovary measures 2.8 x 2.0 x 1.6 cm, volume 4.7 mL. Right ovary is unremarkable. Left ovary measures 2.7 x 1.4 x 1.7 cm, volume of 3.4 mL; however, visualization of the left ovary is limited due to higher location. Limited visualization due to bowel gas. US/US pelvic and transvaginal IMPRESSION: 1. Double wall endometrial thickness is 11 mm. Small amount of fluid within the endometrial cavity. 2. Nabothian cysts in the cervix. 3. Unremarkable right ovary. 4. Left ovary is grossly unremarkable; however, visualization of the left ovary is limited due to higher location and bowel gas. Electronically signed by: Felicita Sullivan MD 07/26/2024 10:22 AM EDT
== END 2024-07-12 15:39 | disposition home or self-care (01) ==
LOC: HO.US 15:38
PROVIDERS: PCP Internal Medicine; Visit Provider Obstetrics & Gynecology
DX: N85.2 Hypertrophy of uterus (principal)
CPT/HCPCS: 76830; 76856

== ENCOUNTER 2024-07-20 11:57 | Outpatient (AMB) | payer OTHER, SELFPAY ==
[2024-07-20 12:28] VITALS: BMI 42.5
--- NOTE | 2024-07-20 12:28 | MHC.OFFVIS ---
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 Father Diabetes HTN (hypertension) Brother No problems noted. Sister Breast cancer Son No problems noted. Son No problems noted. Son No problems noted. Son No problems noted. Son No problems noted. Daughter No problems noted. 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 We thoroughly discussed the procedure itself, including its details, alternatives, and all associated risks. This included but not limited to the following complications such as bleeding, infection, and injury to the vagina, bladder, and vessels, as well as the potential need for transfusion with all its associated risks. Subsequently, the patient sign the consent. Pap smear result: LSIL/HPV E6/E7 positive. Urine test in office = Negative Procedure: During the procedure, the following steps were performed: A speculum was inserted, and acetic acid was applied. Colposcopy was conducted, allowing visualization of the transformation zone. Acetowhite lesions were identified at the 11+12+1+5 o'clock position. Cervical biopsies were obtained from the 11+12+1+5 o'clock position, followed by an endocervical curettage (ECC). Vaginoscopy of the upper vagina revealed no evidence of aceto-white lesions. Hemostasis was achieved using Monsel solution, and the patient tolerated the procedure well. Post-Procedure Instructions: The patient was advised to promptly contact the office or the after hours answering service or go to the emergency room if experiencing a temperature exceeding 100.4?F, abdominal pain, nausea/vomiting, or bleeding. Additionally, the patient was instructed to abstain from vaginal intercourse and bathtub use. The patient confirmed understanding of these instructions. Discharge Instructions: The patient was instructed to schedule a follow-up appointment in 2 weeks for further evaluation and management. Please note that this note was generated using a voice recognition program, and errors may have occurred during chilling hood operator. [id number] of cervix including upper vagina with biopsy and ECC Procedure code (CPT) selection complete Results AMB Test Urine AMB Test Urine Negative Last Edit by Azucena Triplett CMA on 07/20/24 12:29 Assessment & Plan Assessment & Plan (1) LGSIL on Pap smear of cervix: Comment: HPV E6/E7 positive Code(s): R87.612 - Low grade squamous intraepithelial lesion on cytologic smear of cervix (LGSIL) Category: Medical Plan: Discussed with the patient the result of her abnormal pap, its significance, risk of progression, persistence, and regression. the false positive/negative rate of a Pap smear as a screening test in detecting cervical cancer and the indication for a diagnostic test -colposcopy, biopsy, endocervical curettage. The patient verbalized understanding and agreed with the plan, all questions answered. Colposcopy/biopsy/ECC done, see procedure note Orders: Orders AMB HCG Urine Test Today Z32.02 - Encounter for test, result negative AMB Colposcopy Today R87.612 - Low grade squamous intraepithelial lesion on cytologic smear of cervix (LGSIL) Coding Level of Care Code Procedure Only Diagnoses LGSIL on Pap smear of cervix R87.612 CPT Codes Colposcopy - CPT: 23174-[id number] of cervix including upper vagina with biopsy and ECC ([id number])
== END 2024-07-20 12:42 | disposition home or self-care (01) ==
PROVIDERS: PCP Internal Medicine; Visit Provider Obstetrics & Gynecology
DX: R87.612 Low grade squamous intraepithelial lesion on cytologic smear of cervix (LGSIL) (principal); Z32.02 Encounter for pregnancy test, result negative
CPT/HCPCS: 57454

== ENCOUNTER 2024-07-20 11:57 | Outpatient (REF) | payer OTHER, SELFPAY | END 2024-07-20 11:58 | disposition home or self-care (01) | LOC: HO.LNP 11:57 | PROVIDERS: PCP Internal Medicine; Visit Provider Obstetrics & Gynecology | DX: N87.0 Mild cervical dysplasia (principal); R87.612 Low grade squamous intraepithelial lesion on cytologic smear of cervix (LGSIL); Z32.00 Encounter for pregnancy test, result unknown | CPT/HCPCS: 57454; 81025; 88305 ==

== ENCOUNTER 2024-08-03 14:20 | Outpatient (AMB) | payer OTHER, SELFPAY ==
[2024-08-03 14:21] VITALS: BMI 42.5
--- NOTE | 2024-08-03 14:21 | A.OFFVIS_ITS ---
Vital Signs 08/03/24 14:21 Height 5 ft 1 in Weight 224 lb 13.944 oz BMI 42.5 Intake Visit Reasons: family hx breast cancer Intake Note: This patient presents for breast consultation, family history of breast cancer. Patient c/o; reports no complaints. 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 She has a sister who was diagnosed to have breast cancer at the age of 29. Her sister at age of 31 She was therefore referred to me by the editor department because of this family history She had menarche at age of 13. Her 1st was at the age of 16. She had 8 pregnancies, 6 of which were completed 2 full-term. She continues to have periods. She otherwise denies any palpable breast mass. Review of her records showed that she had a mammogram in October, 3 and this was unremarkable. [facility] Medical History BMI 39.0-39.9,adult COVID-19 virus infection Hypercholesterolemia Obesity Hypothyroid Surgical History H/O abdominoplasty H/O breast augmentation History of tubal ligation Family History Mother No problems noted. Father Diabetes HTN (hypertension) Brother No problems noted. Sister Breast cancer, Onset Age: 30 Son No problems noted. Son No problems noted. Son No problems noted. Son No problems noted. Son No problems noted. Daughter No problems noted. 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 Sexual orientation: Straight/Heterosexual Gender identity: Female Cognitive needs: No Hearing needs: No Vision needs: No Female Reproductive History Menstrual Total pregnancies: 8 Full term: 6 Number of Living Children: 6 Ab induced: 2 Review of Systems Const Denies chills and Denies fever(s) Card Denies chest pain, Denies dyspnea and Denies dyspnea on exertion Resp Denies cough, Denies dyspnea and Denies dyspnea on exertion GI Denies hematochezia and Denies change in bowel habits Denies hematuria Musc Denies back pain and Denies limited range of motion Neuro Denies focal weakness and Denies convulsions Psych Denies depression and Denies mood swings Physical Exam Vital Signs: BMI result Body Mass Index 42.5 Const General: comfortable and no acute distress Orientation/consciousness: patient oriented x3 Neck Neck: Yes no lymphadenopathy Chest Other: No palpable breast masses, no nipple or skin changes, no axillary lymphadenopathy Resp Auscultation: clear to auscultation bilaterally Cardio Rhythm: regular rhythm GI Palpation (GI): Soft to palpation, nontender and no guarding Neuro General: patient oriented x3 Assessment & Plan Assessment & Plan (1) Family history of breast cancer: Code(s): Z80.3 - Family history of malignant neoplasm of breast Category: Medical Plan: She has a sister who was diagnosed to have breast cancer at the age of 29. Rosetta therefore fights for genetic testing. I explained to her the procedure for this. I explained to her that there will be implications to herself and her family if she has a genetic mutation. She seems to understand and wants to proceed She will be therefore be scheduled for genetic counseling and genetic testing. Coding Level of Care Code New Pt Level 3 (23065) Diagnoses Family history of breast cancer Z80.3
== END 2024-08-03 15:17 | disposition home or self-care (01) ==
PROVIDERS: PCP Internal Medicine; Visit Provider Surgery
DX: Z80.3 Family history of malignant neoplasm of breast (principal)
CPT/HCPCS: 99203

== ENCOUNTER → 2024-08-03 14:20 | Outpatient (BNVA) | payer OTHER, SELFPAY | PROVIDERS: PCP Internal Medicine; Visit Provider Surgery | DX: Z80.3 Family history of malignant neoplasm of breast (principal) | CPT/HCPCS: 99202 ==

== ENCOUNTER → 2024-08-11 14:04 | Outpatient (BNVA) | payer OTHER, SELFPAY | PROVIDERS: PCP Internal Medicine; Visit Provider Surgery | DX: Z80.3 Family history of malignant neoplasm of breast (principal) ==

== ENCOUNTER 2024-08-30 13:46 | Outpatient (AMB) | payer OTHER, SELFPAY ==
--- NOTE | 2024-08-30 13:48 | A.OFFVIS_ITS ---
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 The patient is doing well with no complaints. The pathology showed the following: A. Endocervix, curettage: Mildly inflamed endocervical and squamous mucosa with reactive changes. B. Cervix, 1 o'clock, biopsy: - Low-grade squamous intraepithelial lesion (MARYAN 1). - No endocervical epithelium identified. C. Cervix 5 o'clock, biopsy: Squamous mucosa and focal endocervical epithelium within normal limits. D. Cervix, 11 o'clock, biopsy: - Low-grade squamous intraepithelial lesion (MARYAN 1). - Endocervical mucosa within normal limits. E. Cervix, 12 o'clock, biopsy: Squamous and endocervical mucosa within normal limits. Pelvic ultrasound done recently because of enlarged uterus felt on pelvic exam showed the following: IMPRESSION: 1. Double wall endometrial thickness is 11 mm. Small amount of fluid within the endometrial cavity. 2. Nabothian cysts in the cervix. 3. Unremarkable right ovary. 4. Left ovary is grossly unremarkable; however, visualization of the left ovary is limited due to higher location and bowel gas. The patient had breast MRI which was negative, the patient has seen Dr. Perez regarding high-risk status for breast cancer and had genetic testing , has a follow-up appointment soon [facility] Medical History BMI 39.0-39.9,adult COVID-19 virus infection Hypercholesterolemia Obesity Hypothyroid Surgical History H/O abdominoplasty H/O breast augmentation History of tubal ligation Family History Mother No problems noted. Father Diabetes HTN (hypertension) Brother No problems noted. Sister Breast cancer, Onset Age: 30 Son No problems noted. Son No problems noted. Son No problems noted. Son No problems noted. Son No problems noted. Daughter No problems noted. 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 Sexual orientation: Straight/Heterosexual Gender identity: Female Cognitive needs: No Hearing needs: No Vision needs: No Female Reproductive History Menstrual Date of last menstrual period: 08/30/24 control method: permanent sterilization Review of Systems Const All systems reviewed & are unremarkable except as noted in HPI and below Reports as per HPI and Reports no additional complaints GI Reports no additional complaints Reports no additional complaints Physical Exam Vital Signs: Last Vital Signs BP 118/70 08/30/24 13:57 BMI result Body Mass Index 42.5 Assessment & Plan Assessment & Plan (1) MARYAN I (cervical intraepithelial neoplasia I): Comment: June 2024 Code(s): N87.0 - Mild cervical dysplasia Category: Medical Plan: Discussed with the patient the pathology results of the colposcopy biopsies & endocervical curettage ( mild dysplasia-MARYAN 1). Discussed with the patient the sensitivity specificity, positive and negative predictive value in detecting cervical cancer in addition discussed the regression, persistence and progression rates. Recommended co-testing in 12 months, if cytology and or HPV are abnormal will proceed was colposcopy biopsy and endocervical curettage, if lesions gets worse or stays persistent for 2 years will proceed with loop electric excision procedure. Instructions given to the patient to schedule a co test appointment in 1 year. All questions answered the patient verbalized understanding. Coding Level of Care Code Est Pt Level 3 (92608) Diagnoses MARYAN I (cervical intraepithelial neoplasia I) N87.0
[2024-08-30 13:57] VITALS: BP 118/70; BMI 42.5
== END 2024-08-30 14:18 | disposition home or self-care (01) ==
PROVIDERS: PCP Internal Medicine; Visit Provider Obstetrics & Gynecology
DX: N87.0 Mild cervical dysplasia (principal)
CPT/HCPCS: 99213

== ENCOUNTER → 2024-08-30 13:46 | Outpatient (BNVA) | payer OTHER, SELFPAY | PROVIDERS: PCP Internal Medicine; Visit Provider Obstetrics & Gynecology | DX: N87.0 Mild cervical dysplasia (principal) | CPT/HCPCS: 99212 ==

== ENCOUNTER 2024-09-18 14:46 | Outpatient (AMB) | payer OTHER, SELFPAY ==
--- NOTE | 2024-09-18 15:31 | MHC.OFFVIS ---
Intake Visit Reasons: 6 week follow up genetic test Intake Note: Genetic test results. Pt c/o; reports no complaints at this time. 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 She is here to discuss the results. She denies any new complaints. [facility] Medical History BMI 39.0-39.9,adult COVID-19 virus infection Hypercholesterolemia Obesity Hypothyroid Surgical History H/O abdominoplasty H/O breast augmentation History of tubal ligation Family History Mother No problems noted. Father Diabetes HTN (hypertension) Brother No problems noted. Sister Breast cancer, Onset Age: 30 Son No problems noted. Son No problems noted. Son No problems noted. Son No problems noted. Son No problems noted. Daughter No problems noted. 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 Sexual orientation: Straight/Heterosexual Gender identity: Female Cognitive needs: No Hearing needs: No Vision needs: No Review of Systems Const Denies chills and Denies fever(s) Card Denies chest pain, Denies dyspnea and Denies dyspnea on exertion Resp Denies cough, Denies dyspnea and Denies dyspnea on exertion GI Denies hematochezia and Denies change in bowel habits Denies hematuria Musc Denies back pain and Denies limited range of motion Neuro Denies focal weakness and Denies convulsions Psych Denies depression and Denies mood swings Physical Exam Const Other: Morbidly obese General: comfortable and no acute distress Resp Effort & Inspection: normal respiratory effort Assessment & Plan Assessment & Plan (1) Family history of breast cancer: Code(s): Z80.3 - Family history of malignant neoplasm of breast Category: Medical Plan: Her [facility] genetic testing did not reveal any genetic mutation. However, because of her sister having breast cancer at an early age, her lifetime risk is still mildly elevated at 16% compared to 13% on average I would recommend therefore continuing with screening programs with MRI in between mammograms. She can otherwise follow up on a p.r.n. basis. Coding Level of Care Code Est Pt Level 2 (57533) Diagnoses Family history of breast cancer Z80.3
== END 2024-09-18 15:41 | disposition home or self-care (01) ==
PROVIDERS: PCP Internal Medicine; Visit Provider Surgery
DX: Z80.3 Family history of malignant neoplasm of breast (principal)
CPT/HCPCS: 99212

== ENCOUNTER → 2024-09-18 14:46 | Outpatient (BNVA) | payer OTHER, SELFPAY | PROVIDERS: PCP Internal Medicine; Visit Provider Surgery | DX: Z71.2 Person consulting for explanation of examination or test findings (principal); Z80.3 Family history of malignant neoplasm of breast | CPT/HCPCS: 99212 ==

== ENCOUNTER 2025-01-02 06:48 | Outpatient (REF) | payer SELFPAY ==
[2025-01-02 07:02] LABS: MANUAL DIFF FLAG NO
[2025-01-02 07:29] LABS: Basophils Percent Auto 0.8 % (0-2); Eosinophils Absolute Auto 0.1 X10*3/uL (0.0-0.4); Eosinophils Percent Auto 1.7 % (0-4); Hematocrit 36.1 % (37.0-47.0); Hemoglobin 11.8 g/dl (12.0-16.0); Imm Gran Abs Auto 0.02 X10*3/uL (0.00-0.03); Imm Gran Pct Auto 0.4 % (0.0-0.4); Immature Retic Fraction 16.3 % (3.0-15.9); Lymphocytes Absolute Auto 1.8 X10*3/uL (1.2-4.9); Lymphocytes Percent Auto 34.5 % (20-40); Mean Corpuscular HGB Conc 32.7 g/dl (31.0-35.0); Mean Corpuscular Hemoglobin 28.6 pg (27.0-33.0); Mean Corpuscular Volume 87.4 fL (80.0-98.0); Mean Platelet Volume 9.3 fL (9.4-12.3); Monocytes Absolute Auto 0.3 X10*3/uL (0.1-1.2); Monocytes Percent Auto 4.8 % (2-11); Neutrophils Percent Auto 57.8 % (45-73); Platelet Count 250 X10*3/uL (160-400); Red Blood Count 4.13 X10*6/uL (4.20-5.50); Red Cell Distribution Width 12.6 % (11.0-16.0); Retic HGB Equivalent 29.8 pg (30.0-35.0); Reticulocyte Percent 1.1 % (0.5-1.8); Reticulocytes Absolute 0.045 X10*6/uL (0.026-0.095); White Blood Count 5.2 X10*3/uL (4.8-10.8)
[2025-01-02 07:41] LABS: Appearance Urine Clear; Color Urine Dark Yellow; Glucose Urine UA Negative (Negative); Leukocyte Esterase Urine Small (1+) (Negative); Nitrite Urine Positive (Negative); PH 5.5 (5.0-9.0); Specific Gravity - Urine >= 1.030 (1.005-1.025); UMIC TRIGGER UACC YES; Urine Blood Negative (Negative); Urine Ketones Negative (Negative); Urine Protein Trace mg/dL (Neg-Trace)
[2025-01-02 07:46] LABS: Bacteria Urine Trace (None Seen); Hyaline Casts Urine 0-2 /LPF (0-2); RBC Urine 0-2 /HPF (0-2); UACC Culture Trigger YES
[2025-01-02 07:59] LABS: Alanine Aminotransferase 24 U/L (0-31); Alkaline Phosphatase 74 U/L (39-117); Anion Gap 9 (12-20); Aspartate Amino Transferase 25 U/L (5-31); Bilirubin Total 0.3 mg/dL (0.0-1.0); Blood Urea Nitrogen 20 mg/dL (9-16); Calcium 8.8 mg/dL (8.4-10.2); Carbon Dioxide 25 mmol/L (22-29); Chloride 110 mmol/L (96-108); Cholesterol 231 mg/dL (<200); Estimated Glomerular Filt Rate > 60; Glucose Random 97 mg/dL (60-115); HDL Cholesterol 59 mg/dL (>40); Iron 37 mcg/dL (30-160); LDL Cholesterol Calculated 155 mg/dL (<100); Percent Iron Saturation 11 % (15-50); Potassium 3.9 mmol/L (3.3-5.1); Sodium 140 mmol/L (135-145); Total Iron Binding Capacity 333 mcg/dL (228-428); Total Protein 7.8 g/dL (6.5-8.0); Triglycerides 87 mg/dL (<150); Unsaturated Iron Binding 296 ug/dL
[2025-01-02 08:19] LABS: Ferritin 20 ng/mL (10-122); Free T4 (Free Thyroxine) 1.08 ng/dL (0.71-1.85); Vitamin D 25-OH Total 14.5 ng/mL (>30)
[2025-01-02 08:25] LABS: Folate 4.7 ng/mL (> or = 4.0); Vitamin B12 569 pg/mL (200-900)
== END 2025-01-02 06:49 | disposition home or self-care (01) ==
LOC: HO.LAB 06:48
PROVIDERS: PCP Internal Medicine; Visit Provider Internal Medicine
DX: E03.9 Hypothyroidism, unspecified (principal); E78.00 Pure hypercholesterolemia, unspecified
CPT/HCPCS: 36415; 80053; 80061; 81001; 82306; 82607; 82728; 82746; 83540; 84439; 84443; 85025; 85045; 87086; 87147

== ENCOUNTER 2025-03-12 15:35 | Outpatient (AMB) | payer OTHER, SELFPAY ==
--- NOTE | 2025-03-12 15:43 | MHC.PC.OV ---
Vital Signs 03/12/25 15:49 Height 5 ft 1 in Weight 212 lb BMI 40.1 BP 120/60 Blood Pressure Location Lt brachial Position Sitting Pulse 60 Pulse Source Pulse Oximeter Temp 97.1 F Temp Source Temporal Artery Scan Pulse Oximetry (%) 97 Oxygen Delivery Method Room Air Intake Visit Reasons: Physical Intake Note: Patient is here today for a physical. 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: Not Required per policy Accompanied by: Self / Same As Patient Allergies No Known Allergies [No Known Allergies*] Allergy (Verified 03/12/25 15:49) Medication List - Last Reconciled 03/12/25 by Su Mac MD levothyroxine 137 mcg PO DAILY Tobacco use date assessed: 03/12/25 Dental Screening Dental Screen Date: 03/12/25 Did you have a dental visit in the last 12 months?: Yes Did you have a dental problem in the last 6 months where you did not have access to dental care?: No Was dental information given to patient?: Patient has dentist [facility] Medical History BMI 39.0-39.9,adult COVID-19 virus infection Hypercholesterolemia Obesity Hypothyroid Surgical History H/O abdominoplasty H/O breast augmentation History of tubal ligation Family History (Updated 03/12/25 @ 15:48 by RAFFI Winchester) Mother No problems noted. Father Diabetes HTN (hypertension) Brother No problems noted. Sister Breast cancer, Onset Age: 30 Son No problems noted. Son No problems noted. Son No problems noted. Son No problems noted. Son No problems noted. Daughter No problems noted. 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 1. Little interest or pleasure in doing things: not at all 2. Feeling down, depressed, or hopeless: not at all 3. Trouble falling or staying asleep, or sleeping too much: not at all 4. Feeling tired or having little energy: not at all 5. Poor appetite or overeating: not at all 6. Feeling bad about yourself - or that you are a failure or have let yourself or your family down: not at all 7. Trouble concentrating on things, such as reading the newspaper or watching television: not at all 8. Moving or speaking so slowly that other people could have noticed. Or the opposite - being so fidgety or restless that you have been moving around a lot more than usual: not at all 9. Thoughts that you would be better off or of hurting yourself in some way: not at all Total score: 0 Depression Screening Interpretation: Negative Depression Screening Done: Yes 82493 - PHQ-9 Billing: Yes Source: Developed by Drs. Anthony Garrett, Maricarmen Hendrix, Angelo Davidson and colleagues, with an educational ambrosio from [employer] Thrive Questionnaire Date Thrive assessed: 03/10/25 I am a: Patient What is your living situation today?: I have a steady place to live Within the past 12 months, did the food you bought not last and you didn't have the money to get more?: Never true Within the past 12 months, did you worry whether your food would run out before you got money to buy more?: Never true Do you have trouble paying for medicines?: No Do you have trouble getting transportation to medical appointments?: No Do you have trouble paying your heating and electricity bill?: No Do you have trouble taking care of your child, family member or friend?: No Do you have trouble with day-to-day activities such as bathing, preparing meals, shopping, managing finances, etc.?: No Are you currently unemployed and looking for a job?: No Are you interested in more education?: No Please select the resources that you would like help with: None Currently or been in a relationship where the following occur: No concerns reported THRIVE Score: 0 AUDIT C Alcohol Use Questionnaire (AUDIT-C) 1. How often do you have a drink containing alcohol?: Never 3. How often do you have six or more drinks on one occasion?: Never Total Score: 0 WILI-7 AMB Questionnaire WILI-7 Date WILI - 7 assessed: 03/12/25 Feeling nervous, anxious, or on edge: 0 = Not at all Not being able to stop or control worryin = Not at all Worrying too much about different things: 0 = Not at all Trouble relaxin = Not at all Being so restless that it is hard to sit still: 0 = Not at all Becoming easily annoyed or irritable: 0 = Not at all Feeling afraid as if something awful might happen: 0 = Not at all Total WILI-7 score (0-4 normal; 5-9 mild; 10-14 moderate; 15-21 severe): 0 Source: Developed by Drs. Anthony Garrett, Maricarmen Hendrix, Angelo Davidson and colleagues, with an educational ambrosio from [employer] WILI-7 Assessment Billing WILI-7 Assessment Tool: WILI-7 Assessment 96864 Review of Systems Const Denies poor appetite and Denies weakness Eyes Denies no additional complaints ENT Reports Normal hearing present, Denies dizziness, Denies nasal congestion, Denies tinnitus and Denies sore throat Card Denies chest pain, Denies syncope, Denies rapid heart rate and Denies dyspnea Resp Denies cough and Denies dyspnea GI Denies change in stool character, Reports constipation, Denies diarrhea, Denies nausea and Denies vomiting Denies urinary frequency, Denies difficulty voiding and Denies dysuria Neuro Reports Normal hearing present, Denies confusion, Denies dizziness, Denies syncope and Denies weakness Psych Denies confusion Physical exam (Primary Care) Vital Signs: Last Vital Signs Temp 97.1 F 03/12/25 15:49 Pulse 60 03/12/25 15:49 BP 120/60 03/12/25 15:49 Pulse Ox 97 03/12/25 15:49 Oxygen Delivery Method Room Air 03/12/25 15:49 BMI result Body Mass Index 40.1 Tobacco/Smoking Status: Tobacco use Status Tobacco use date assessed 03/12/25 03/12/25 15:54 Patient Tobacco Use Status Never used Tobacco 03/12/25 15:45 e-Cigarette/Vaping Use Never Used 03/12/25 15:45 PHQ-9: PHQ-9 Score PHQ-9: Total score 0 03/12/25 15:54 Depression Screening Interpretation: Negative Thrive Assessment: Date of Thrive Assessment Date Thrive assessed 03/10/25 03/12/25 15:45 Currently or been in a relationship where the following occur: No concerns reported Const General: No confusion Orientation/consciousness: No confusion HENMT Head: Yes normocephalic Ears: external ears normal and TM's normal bilaterally Face and sinus: Yes normal facial exam Mouth: moist mucous membranes Throat: Yes tonsils normal Eyes Conjunctivae: conjunctivae normal Pupils: Equal, round and reactive pupils present and Pupil accommodation reflex normal Direct Ophthalmoscopy: normal light reflex Neck Neck: No lymphadenopathy Thyroid: Thyroid normal Chest Chest palpation & inspection: normal inspection of the chest Resp Effort & Inspection: normal respiratory effort and no audible wheezes Auscultation: clear to auscultation bilaterally, no crackles, no wheezes and lung sounds not diminished Cardio Rate: regular rate Rhythm: regular rhythm Peripheral pulses: radial pulses present and dorsalis pedis present GI Palpation (GI): no masses Auscultation: normal bowel sounds and normoactive bowel sounds Rectal Exam - Female: deferred Skin General skin exam: no rashes or lesions noted Rashes: no rashes Neuro General: No confusion Cranial nerves: Yes Equal, round and reactive pupils present and Yes Normal hearing present Cognition (Neuro): normal cognition Gait exam (Neuro): Normal gait present Motor exam (neuro): 5/5 motor strength present throughout Deep tendon reflexes (DTR's): Right brachioradialis reflex intensity grade: 2+, Left brachioradialis reflex intensity grade: 2+, Right patellar reflex intensity grade: 2+ and Left patellar reflex intensity grade: 2+ Extrem General: No edema Coding Level of Care Code Est Pt Prev Care 18-39y([id number]) Diagnoses Hypercholesterolemia E78.00 Acquired hypothyroidism E03.9 Hypothyroidism type: acquired Anemia D64.9 Morbid obesity E66.01 Family history of breast cancer Z80.3 Annual physical exam Z00.00 Onychomycosis B35.1 Additional Codes WILI-7 Assessment Billing - WILI-7 Assessment Tool: WILI-7 Assessment 06421 ([id number]) PHQ-9 - 54334 - PHQ-9 Billing: Yes ([id number]) Assessment & Plan Assessment & Plan (1) Hypercholesterolemia: Code(s): E78.00 - Pure hypercholesterolemia, unspecified Category: Medical Plan: Avoid fried foods, chicken skin, eggs, butter margarine, pastries and meat. Be it pork or beef they have a lot of cholesterol LDL goal of less than 130 and triglyceride of less than 150 (2) Hypothyroid: Code(s): E03.9 - Hypothyroidism, unspecified Category: Medical Qualifiers: Hypothyroidism type: acquired Qualified Code(s): E03.9 - Hypothyroidism, unspecified Plan: Patient had an abnormal thyroid test (3) Anemia: Code(s): D64.9 - Anemia, unspecified Category: Medical Plan: Will continue to monitor for now (4) Morbid obesity: Code(s): E66.01 - Morbid (severe) obesity due to excess calories Category: Medical Plan: Diet and exercise (5) Family history of breast cancer: Code(s): Z80.3 - Family history of malignant neoplasm of breast Category: Medical Plan: Patient is being seen by the surgeon and having MRI and mammogram alternating for surveillance (6) Annual physical exam: Code(s): Z00.00 - Encounter for general adult medical examination without abnormal findings Category: Medical Plan: Patient is advised to eat healthy, keep well hydrated, keep active and have adequate sleep. (7) Onychomycosis: Code(s): B35.1 - Tinea unguium Category: Medical (8) Onychomycosis: Code(s): B35.1 - Tinea unguium Category: Medical Plan History of Present Illness The patient is a 39-year-old female presenting for an annual physical examination and wellness check. She has lost 12 pounds since her last visit in January 2024. She has a history of hypercholesterolemia and hypothyroidism. Despite taking 137 mcg of thyroid medication daily, her TSH was noted to be 6.5 in December 2024, suggesting suboptimal control. She is managing low vitamin D levels with supplements and has a history of mild anemia, particularly around menstruation. The patient has a family history of breast cancer and is committed to regular screening. She had a mammogram in July 2024 with plans for alternating surveillance with MRI. Health Maintenance - Screening mammograms and annual MRIs due to family history of breast cancer - Blood work in December 2024 indicating elevated LDL cholesterol and TSH - Mild anemia noted; advised iron-rich diet around menstruation - Low vitamin D identified; supplement commenced - No new allergies reported - Regular use of thyroid medication (137 mcg) - Cholesterol management with a dietary focus on reducing high cholesterol foods Social History - Employment: Recently started a new job - Exercise: Walking a few miles daily - Substance Use: Denies use of alcohol, tobacco, and recreational drugs - Diet: Attempts to eat healthy, reducing high-cholesterol foods. Consumes chicken, wraps, and salads. - Family History: Positive for breast cancer in sister and aunt - Insurance: Concerns about coverage with new employment Review of Systems - Constitutional: Reports weight loss of 12 pounds - Cardiovascular: Denies chest pain or discomfort - Gastrointestinal: Denies nausea, vomiting, heartburn; reports normal bowel movements - Genitourinary: Denies urinary issues except occasional nighttime urination once - Endocrine: Denies any new thyroid symptoms - Neurological: Denies dizziness or lightheadedness - Musculoskeletal: Denies joint pain or stiffness - Dermatological: Concerns about possible nail fungus - Hematological/Lymphatic: Previously identified mild anemia Physical Exam General: Cooperative, healthy appearing, comfortable, no acute distress and well developed Orientation: Patient oriented x3 Limitations: No limitations Head: Normal to inspection Ears: Hearing grossly normal bilaterally Nose: Normal external nose present Face and sinus: Normal facial exam Eyes: Appearance normal, both eyes and all related structures Neck: Normal visual inspection and Yes full ROM Respiratory: Normal respiratory effort and able to speak in complete sentences. Clear to auscultation bilaterally Cardiovascular: Regular rate and rhythm. Normal S1 and S2 GI: Normal to inspection. Soft to palpation and nontender Skin: No rashes or lesions noted Neuro: Patient oriented x3 Extremities: Normal to inspection Results - Labs: Elevated TSH level at 6.5, LDL cholesterol at 155, mild anemia with hemoglobin at 11.8 - Tests and Diagnostics: Normal kidney and liver function tests, normal blood sugar Plan I will encourage ongoing exercise and dietary management for the patient's obesity and hypercholesterolemia. We aim for an LDL cholesterol goal of less than 130 mg/dL. Repeat testing for thyroid function will guide potential adjustments in medication dosage due to the elevated TSH. Vitamin D supplementation will continue, and regular screenings for breast cancer with mammogram and MRI are recommended due to family history. A dermatology referral is considered for nail assessment. The mild anemia will be observed, especially during menstruation, with increased dietary iron. Follow-up on blood tests for cholesterol and thyroid will ensure management efficacy, with updates on immunizations and screenings as needed. Patient was informed and verbally consented to the use of an ambient scribe for clinic note documentation during this visit. Discussion Notes We reviewed the elevated LDL cholesterol and discussed dietary interventions to reduce intake of high cholesterol and trans fat foods. We emphasized the importance of maintaining a regular exercise routine. Reconsideration for the thyroid medication dosage increase was discussed due to the TSH level of 6.5, pending further testing. The patient is advised to continue vitamin D supplementation and is informed about the importance of iron intake, particularly during menstruation, due to mild anemia. Screening strategies for breast cancer remain a priority, with alternating mammograms and MRI. The patient expressed an understanding of the need for follow-up and the importance of monitoring. Dermatology evaluation is considered for noted nail changes. We discussed current lab results, and the patient agreed to follow-up testing, including cholesterol and thyroid levels. We will reassess the plan based on those results. Patient Instructions - Continue exercise regimen with daily walking. - Follow a diet low in cholesterol and trans fats. - Take thyroid medication as prescribed and have repeat blood work drawn as scheduled for thyroid and cholesterol monitoring. - Maintain vitamin D supplementation as advised. - Include iron-rich foods in your diet, especially during menstruation. - Keep up with regular mammogram and MRI screenings for breast cancer surveillance. - Consult dermatology for nail concerns if symptoms persist. - Follow up on lab results and remain consistent with wellness visits and any new or concerning symptoms. - Reach out with any questions or issues. Orders: Orders Lipid Panel Today E78.00 - Pure hypercholesterolemia, unspecified Comprehensive Met. Panel Today E78.00 - Pure hypercholesterolemia, unspecified MR breast BI wo/w con Today Z80.3 - Family history of malignant neoplasm of breast MM tomosynthesis screening BI Today Z12.31 - Encounter for screening mammogram for malignant neoplasm of breast, Z80.3 - Family history of malignant neoplasm of breast Referrals Dermatology Referral B35.1 - Tinea unguium
[2025-03-12 15:49] VITALS: BP 120/60; PULSE 60; TEMP 36.2; O2SAT 97; BMI 40.1
== END 2025-03-12 16:51 | disposition home or self-care (01) ==
LOC: HO.HMCH 15:35
PROVIDERS: PCP Internal Medicine; Visit Provider Internal Medicine
DX: Z00.00 Encounter for general adult medical examination without abnormal findings (principal); E78.00 Pure hypercholesterolemia, unspecified; E66.01 Morbid (severe) obesity due to excess calories; Z68.41 Body mass index [BMI] 40.0-44.9, adult; E03.9 Hypothyroidism, unspecified; D64.9 Anemia, unspecified; Z80.3 Family history of malignant neoplasm of breast; B35.1 Tinea unguium

== ENCOUNTER → 2025-03-12 15:35 | Outpatient (BNVA) | payer OTHER, SELFPAY | PROVIDERS: PCP Internal Medicine; Visit Provider Internal Medicine | DX: Z00.00 Encounter for general adult medical examination without abnormal findings (principal); E78.00 Pure hypercholesterolemia, unspecified; E03.9 Hypothyroidism, unspecified; D64.9 Anemia, unspecified; E66.01 Morbid (severe) obesity due to excess calories; Z68.41 Body mass index [BMI] 40.0-44.9, adult; B35.1 Tinea unguium; Z80.3 Family history of malignant neoplasm of breast | CPT/HCPCS: 96127; 99395 ==

== ENCOUNTER 2025-03-31 07:24 | Outpatient (REF) | payer OTHER, SELFPAY ==
[2025-03-31 10:03] LABS: Alanine Aminotransferase 25 U/L (0-31); Alkaline Phosphatase 74 U/L (39-117); Anion Gap 13 (12-20); Aspartate Amino Transferase 27 U/L (5-31); Bilirubin Total 0.3 mg/dL (0.0-1.0); Blood Urea Nitrogen 18 mg/dL (9-16); Calcium 9.1 mg/dL (8.4-10.2); Carbon Dioxide 22 mmol/L (22-29); Chloride 112 mmol/L (96-108); Cholesterol 221 mg/dL (<200); Estimated Glomerular Filt Rate > 60; Glucose Random 96 mg/dL (60-115); HDL Cholesterol 53 mg/dL (>40); LDL Cholesterol Calculated 152 mg/dL (<100); Potassium 3.9 mmol/L (3.3-5.1); Sodium 143 mmol/L (135-145); Total Protein 7.6 g/dL (6.5-8.0); Triglycerides 80 mg/dL (<150)
[2025-03-31 10:11] LABS: HBc Num1 0.12 S/CO (0.00-0.79); HBsAGNum1 2.94 S/CO (0.00-0.99); Hepatitis B Core Antibody Nonreactive (Nonreactive); ~HepC Num1 0.06 S/CO (0.00-0.79); ~Hepatitis B Surface Antibody NONREACTIVE (Nonreactive); ~Hepatitis C Antibody Nonreactive (Nonreactive)
[2025-03-31 10:21] LABS: Free T4 (Free Thyroxine) 0.96 ng/dL (0.71-1.85); Thyroid Stimulating Hormone 2.02 uIU/mL (0.32-4.0)
[2025-03-31 12:58] LABS: HBsAGNum2 Reactive; HBsAGNum3 Reactive
[2025-03-31 12:59] LABS: Hepatitis B Surface Antigen Retest CNFM (Negative)
[2025-03-31 13:16] LABS: Hepatitis B Surface Antigen Reactive (Negative); Hepatitis B Surface Antigen Retest CNFM (Negative)
[2025-04-10 13:09] LABS: HBsAG REACTIVE
== END 2025-03-31 07:25 | disposition home or self-care (01) ==
LOC: HO.LAB 07:24
PROVIDERS: PCP Internal Medicine; Visit Provider Internal Medicine
DX: E78.00 Pure hypercholesterolemia, unspecified (principal); Z02.0 Encounter for examination for admission to educational institution; E03.9 Hypothyroidism, unspecified; R79.89 Other specified abnormal findings of blood chemistry
CPT/HCPCS: 36415; 80053; 80061; 84439; 84443; 86704; 86706; 86735; 86762; 86765; 86787; 86803; 87340

== ENCOUNTER 2025-04-02 07:03 | Outpatient (REF) | payer OTHER, SELFPAY ==
[2025-04-02 08:35] LABS: HBS Num1 3.41 mIU/mL (0-7.99); Hepatitis B Core Antibody Nonreactive (Nonreactive); ~Hepatitis B Surface Antibody NONREACTIVE (Nonreactive)
[2025-04-03 14:14] LABS: Hepatitis B Viral DNA Qn - cp NOT DETECTED Log IU/mL (NOT DETECTED); Hepatitis B Viral DNA Qn-IU/mL NOT DETECTED (NOT DETECTED)
[2025-04-04 23:19] LABS: TS Negative Control Passed; TS Panel A 3; TS Panel B 0; TS Positive Control Passed; TSpotTB Negative (Negative)
== END 2025-04-02 07:04 | disposition home or self-care (01) ==
LOC: HO.LAB 07:03
PROVIDERS: PCP Internal Medicine; Visit Provider Internal Medicine
DX: Z02.0 Encounter for examination for admission to educational institution (principal)
CPT/HCPCS: 36415; 86481; 86704; 86706; 87340; 87517

== ENCOUNTER 2025-05-02 16:10 | Outpatient (AMB) | payer OTHER, SELFPAY ==
--- NOTE | 2025-05-02 16:14 | A.OFFPC_ITS ---
Vital Signs 05/02/25 16:15 Height 5 ft 1 in Weight 217 lb 4 oz BMI 41.0 BP 110/79 Blood Pressure Location Lt brachial Position Sitting Respiration 18 Pulse 82 Pulse Source Pulse Oximeter Pulse Oximetry (%) 99 Oxygen Delivery Method Room Air Intake Visit Reasons: Zepbound Allergies No Known Allergies [No Known Allergies*] Allergy (Verified 05/02/25 16:19) Medication List - Last Reconciled 05/02/25 by Sonja Tian PA-C levothyroxine 137 mcg PO DAILY Tobacco use date assessed: 03/12/25 Dental Screening Dental Screen Date: 05/02/25 HPI Zepbound HPI Details 39-year-old female with past medical his tory of hypothyroid and obesity last seen 02/2025 coming in for follow up. Presenting with requests for weight management medication and concerns regarding liver function tests. She experienced effective weight management from injections taken once last year. Hepatitis screening showed a reactive B surface antigen with no evidence of active infection, as other confirmation tests were negative. Liver function tests have demonstrated consistently normal transaminase and bilirubin levels, in the context of a previous diagnosis of mild fatty liver disease. Concerns about cholesterol levels and weight management led to discussions regarding eligibility and effectuation of weight loss injections. [facility] Medical History BMI 39.0-39.9,adult COVID-19 virus infection Hypercholesterolemia Obesity Hypothyroid Surgical History H/O abdominoplasty H/O breast augmentation History of tubal ligation Family History Mother No problems noted. Father Diabetes HTN (hypertension) Brother No problems noted. Sister Breast cancer, Onset Age: 30 Son No problems noted. Son No problems noted. Son No problems noted. Son No problems noted. Son No problems noted. Daughter No problems noted. 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 1. Little interest or pleasure in doing things: not at all 2. Feeling down, depressed, or hopeless: not at all 3. Trouble falling or staying asleep, or sleeping too much: not at all 4. Feeling tired or having little energy: several days 5. Poor appetite or overeating: not at all 6. Feeling bad about yourself - or that you are a failure or have let yourself or your family down: several days 7. Trouble concentrating on things, such as reading the newspaper or watching television: not at all 8. Moving or speaking so slowly that other people could have noticed. Or the opposite - being so fidgety or restless that you have been moving around a lot more than usual: not at all 9. Thoughts that you would be better off or of hurting yourself in some way: not at all Total score: 2 Depression Screening Interpretation: Positive Depression Screening Done: Yes Source: Developed by Drs. Anthony Garrett, Maricarmen Hendrix, Angelo Davidson and colleagues, with an educational ambrosio from [employer]. Thrive Questionnaire Date Thrive assessed: 03/10/25 I am a: Patient What is your living situation today?: I have a steady place to live Within the past 12 months, did the food you bought not last and you didn't have the money to get more?: Never true Within the past 12 months, did you worry whether your food would run out before you got money to buy more?: Never true Do you have trouble paying for medicines?: No Do you have trouble getting transportation to medical appointments?: No Do you have trouble paying your heating and electricity bill?: No Do you have trouble taking care of your child, family member or friend?: No Do you have trouble with day-to-day activities such as bathing, preparing meals, shopping, managing finances, etc.?: No Are you currently unemployed and looking for a job?: No Are you interested in more education?: No Please select the resources that you would like help with: None Currently or been in a relationship where the following occur: No concerns reported THRIVE Score: 0 WILI-7 AMB Questionnaire WILI-7 Date WILI - 7 assessed: 05/02/25 Feeling nervous, anxious, or on edge: 0 = Not at all Not being able to stop or control worryin = Not at all Worrying too much about different things: 0 = Not at all Trouble relaxin = Several days Being so restless that it is hard to sit still: 0 = Not at all Becoming easily annoyed or irritable: 0 = Not at all Feeling afraid as if something awful might happen: 0 = Not at all Total WILI-7 score (0-4 normal; 5-9 mild; 10-14 moderate; 15-21 severe): 1 Source: Developed by Drs. Anthony Garrett, Maricarmen Hendrix, Angelo Davidson and colleagues, with an educational ambrosio from [employer]. Review of Systems Const Denies body aches, Denies chills, Denies fever(s), Denies headache(s) and Denies poor appetite Eyes Reports no additional complaints ENT Denies dizziness and Denies headache(s) Card Denies chest pain, Denies syncope, Denies edema, Denies irregular heart rhythm, Denies lightheadedness and Denies dyspnea Resp Denies cough and Denies dyspnea GI Denies abdominal pain, Denies constipation, Denies diarrhea, Denies nausea and Denies vomiting Reports no additional complaints Musc Reports no additional complaints and Denies abnormal gait Skin/Breast Reports system reviewed and no additional complaints, except as documented Neuro Denies abnormal gait, Denies dizziness, Denies syncope and Denies headache(s) Psych Reports no additional complaints Physical exam (Primary Care) Vital Signs: Last Vital Signs Pulse 82 05/02/25 16:15 Resp 18 05/02/25 16:15 BP 110/79 05/02/25 16:15 Pulse Ox 99 05/02/25 16:15 Oxygen Delivery Method Room Air 05/02/25 16:15 BMI result Body Mass Index 41.0 Tobacco/Smoking Status: Tobacco use Status Tobacco use date assessed 03/12/25 03/12/25 15:54 Patient Tobacco Use Status Never used Tobacco 03/12/25 15:45 e-Cigarette/Vaping Use Never Used 03/12/25 15:45 Depression Screening Interpretation: Positive Thrive Assessment: Date of Thrive Assessment Date Thrive assessed 03/10/25 03/12/25 15:45 Currently or been in a relationship where the following occur: No concerns reported Const General: cooperative, healthy appearing, comfortable and no acute distress Orientation/consciousness: patient oriented x3 HENMT Head: Yes normocephalic Ears: hearing grossly normal bilaterally General nose exam: Normal external nose present Eyes General: appearance normal, both eyes and all related structures Conjunctivae: conjunctivae normal Neck Neck: Yes full ROM and Yes no lymphadenopathy Resp Effort & Inspection: normal respiratory effort Auscultation: clear to auscultation bilaterally, no crackles, no rales, no rh onchi and no wheezes Cardio Rate: regular rate Rhythm: regular rhythm Skin General skin exam: no rashes or lesions noted Neuro General: patient oriented x3 Gait exam (Neuro): Normal gait present Extrem General: Yes normal to inspection, Yes full ROM and No edema Psych Affect: normal affect Attitude: cooperative Insight: Good insight present (Psych) Judgement: Good judgement present (Psych) Coding Level of Care Code Est Pt Level 3 (85426) Diagnoses Morbid obesity E66.01 Hepatitis B B19.10 Assessment & Plan Assessment & Plan (1) Morbid obesity: Code(s): E66.01 - Morbid (severe) obesity due to excess calories Category: Medical Plan: Healthy diet and regular exercise is encouraged. Patient was counseled today on the risks and benefits of GLP-1 injections as well as the dosing schedule. She has no family history or personal history of thyroid disease and no gallbladder disease. Discussed with the patient the potential GI side effects of this medication. Plan to have repeat blood work after one month of therapy to monitor kidney and liver function before increasing the dose of this medication. Follow up in 2 months for a weight check. Plan to send Zepbound to the pharmacy as she has tried this in the past with good benefit. Patient would benefit from this medication given the elevated cholesterol and weight. I did discuss with the patient if it is not covered by insurance plan to refer to weight management. (2) Hepatitis B: Code(s): B19.10 - Unspecified viral hepatitis B without hepatic coma Category: Medical Plan: Patient having positive hepatitis B surface antigen without other tests co nfirming active or past infection. This was discussed by myself and by previously. Referral was placed to gastroenterology by Dr. Mac. Plan I discussed the patient's weight management plan, emphasizing the importance of sustaining a high-protein diet and hydration. We will reinitiate injection therapy subject to insurance approval and successful weight loss progress. The patient's reactive Hepatitis B result needs specialist evaluation as additional confirmation tests were negative. Although thyroid panel results are normal, continued monitoring and lifestyle adjustments for mild fatty liver disease are pivotal. We will monitor her progress, with follow-up in two months to evaluate weight and function parameters, ensuring engagement in symptom vigilance and routine health checks as recommended. This note was constructed using voice recognition software. While every effort has been made to ensure accuracy and water quality control engineer, still areas may have been included sometimes these areas may affect the content or meeting of the given symptoms. Total time spent caring for the patient today was 20 minutes. This includes time spent before the visit reviewing the chart, time spent during the visit, and time spent after the visit and documentation. Patient was informed and verbally consented to the use of an ambient scribe for clinic note documentation during this visit. Medications: New tirzepatide (weight loss) (Zepbound) for 4 weeks 2.5 mg (0.5 mL) subcut QWEEK 2 mL 0RF E66.01 - Morbid (severe) obesity due to excess calories, E78.00 - Pure hypercholesterolemia, unspecified
[2025-05-02 16:15] VITALS: BP 110/79; PULSE 82; RESP 18; O2SAT 99; BMI 41.0
== END 2025-05-02 16:40 | disposition home or self-care (01) ==
LOC: HO.HMCH 16:11
PROVIDERS: PCP Internal Medicine
DX: B19.10 Unspecified viral hepatitis B without hepatic coma (principal); E66.01 Morbid (severe) obesity due to excess calories; Z68.41 Body mass index [BMI] 40.0-44.9, adult

== ENCOUNTER → 2025-05-02 16:10 | Outpatient (BNVA) | payer OTHER, SELFPAY | PROVIDERS: PCP Internal Medicine | DX: Z13.89 Encounter for screening for other disorder (principal) ==

== ENCOUNTER 2025-06-20 14:40 | Outpatient (AMB) | payer OTHER, SELFPAY ==
[2025-06-20 14:46] VITALS: BP 118/86; PULSE 74; RESP 18; TEMP 36.2; O2SAT 98; BMI 37.8
--- NOTE | 2025-06-20 14:46 | MHC.PC.OV ---
Vital Signs 06/20/25 14:46 Height 5 ft 1 in Weight 200 lb 2 oz BMI 37.8 BP 118/86 Blood Pressure Location Lt brachial Position Sitting Respiration 18 Pulse 74 Pulse Source Pulse Oximeter Temp 97.1 F Temp Source Temporal Artery Scan Pulse Oximetry (%) 98 Oxygen Delivery Method Room Air Intake Visit Reasons: weight check/fu Allergies No Known Allergies (No Known Allergies*) Allergy (Verified 06/20/25 14:54) Tobacco use date assessed: 06/20/25 Dental Screening Dental Screen Date: 06/20/25 Did you have a dental visit in the last 12 months?: Yes Did you have a dental problem in the last 6 months where you did not have access to dental care?: No Was dental information given to patient?: Patient has dentist [facility] Medical History (Updated 06/20/25 @ 15:07 by Su Mac MD) Morbid obesity BMI 39.0-39.9,adult COVID-19 virus infection Hypercholesterolemia Obesity Hypothyroid Surgical History H/O abdominoplasty H/O breast augmentation History of tubal ligation Family History Mother No problems noted. Father Diabetes HTN (hypertension) Brother No problems noted. Sister Breast cancer, Onset Age: 30 Son No problems noted. Son No problems noted. Son No problems noted. Son No problems noted. Son No problems noted. Daughter No problems noted. 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 1. Little interest or pleasure in doing things: not at all 2. Feeling down, depressed, or hopeless: not at all 3. Trouble falling or staying asleep, or sleeping too much: not at all 4. Feeling tired or having little energy: several days 5. Poor appetite or overeating: not at all 6. Feeling bad about yourself - or that you are a failure or have let yourself or your family down: several days 7. Trouble concentrating on things, such as reading the newspaper or watching television: not at all 8. Moving or speaking so slowly that other people could have noticed. Or the opposite - being so fidgety or restless that you have been moving around a lot more than usual: not at all 9. Thoughts that you would be better off or of hurting yourself in some way: not at all Total score: 2 Depression Screening Interpretation: Positive Depression Screening Done: Yes Source: Developed by Drs. Anthony Garrett, Maricarmen Hendrix, Angelo Davidson and colleagues, with an educational ambrosio from [employer]. Thrive Questionnaire Date Thrive assessed: 03/10/25 I am a: Patient What is your living situation today?: I have a steady place to live Within the past 12 months, did the food you bought not last and you didn't have the money to get more?: Never true Within the past 12 months, did you worry whether your food would run out before you got money to buy more?: Never true Do you have trouble paying for medicines?: No Do you have trouble getting transportation to medical appointments?: No Do you have trouble paying your heating and electricity bill?: No Do you have trouble taking care of your child, family member or friend?: No Do you have trouble with day-to-day activities such as bathing, preparing meals, shopping, managing finances, etc.?: No Are you currently unemployed and looking for a job?: No Are you interested in more education?: No Please select the resources that you would like help with: None Currently or been in a relationship where the following occur: No concerns reported THRIVE Score: 0 AUDIT C Alcohol Use Questionnaire (AUDIT-C) 1. How often do you have a drink containing alcohol?: Never 3. How often do you have six or more drinks on one occasion?: Never Total Score: 0 WILI-7 AMB Questionnaire WILI-7 Date WILI - 7 assessed: 05/02/25 Feeling nervous, anxious, or on edge: 0 = Not at all Not being able to stop or control worryin = Not at all Worrying too much about different things: 0 = Not at all Trouble relaxin = Several days Being so restless that it is hard to sit still: 0 = Not at all Becoming easily annoyed or irritable: 0 = Not at all Feeling afraid as if something awful might happen: 0 = Not at all Total WILI-7 score (0-4 normal; 5-9 mild; 10-14 moderate; 15-21 severe): 1 Source: Developed by Drs. Anthony Garrett, Maricarmen Hendrix, Angelo Davidson and colleagues, with an educational ambrosio from [employer]. Physical exam (Primary Care) Vital Signs: Last Vital Signs Temp 97.1 F 06/20/25 14:46 Pulse 74 06/20/25 14:46 Resp 18 06/20/25 14:46 BP 118/86 06/20/25 14:46 Pulse Ox 98 06/20/25 14:46 Oxygen Delivery Method Room Air 06/20/25 14:46 BMI result Body Mass Index 37.8 Tobacco/Smoking Status: Tobacco use Status Tobacco use date assessed 06/20/25 06/20/25 14:56 Patient Tobacco Use Status Never used Tobacco 06/20/25 14:56 e-Cigarette/Vaping Use Never Used 06/20/25 14:56 PHQ-9: PHQ-9 Score PHQ-9: Total score 2 06/20/25 14:56 Depression Screening Interpretation: Positive Thrive Assessment: Date of Thrive Assessment Date Thrive assessed 03/10/25 06/20/25 14:56 Currently or been in a relationship where the following occur: No concerns reported Const General: alert; No acute distress Eyes Conjunctivae: conjunctivae normal Resp Auscultation: clear to auscultation bilaterally Cardio Rate: regular rate Rhythm: regular rhythm GI Inspection: Yes normal to inspection Extrem General: Yes normal to inspection and No edema Coding Level of Care Code Est Pt Level 4 (37460) Diagnoses Class 3 severe obesity due to excess calories with serious comorbidity and body mass index (BMI) of 40.0 to 44.9 in adult E66.01; Z68.41 Obesity type: due to excess calories Obesity classification: adult class 3 (BMI >= 40) Serious obesity comorbidity presence: with serious comorbidity Body mass index: BMI 40.0-44.9 Acquired hypothyroidism E03.9 Hypothyroidism type: acquired Hypercholesterolemia E78.00 Assessment & Plan Assessment & Plan (1) Obesity: Code(s): E66.9 - Obesity, unspecified Category: Medical Qualifiers: Obesity type: due to excess calories Obesity classification: adult class 3 (BMI >= 40) Serious obesity comorbidity presence: with serious comorbidity Body mass index: BMI 40.0-44.9 Qualified Code(s): E66.01 - Morbid (severe) obesity due to excess calories; Z68.41 - Body mass index [BMI]40.0-44.9, adult Plan: Diet and exercise continue with trace appetite. Patient is on zepbound 5 mg once a week and had decreased weight in 1 month from 05/02/2025 to 06/20/2025 217 lbs to 200 lbs (2) Hypothyroid: Code(s): E03.9 - Hypothyroidism, unspecified Category: Medical Qualifiers: Hypothyroidism type: acquired Qualified Code(s): E03.9 - Hypothyroidism, unspecified Plan: Continue with thyroid medication (3) Hypercholesterolemia: Code(s): E78.00 - Pure hypercholesterolemia, unspecified Category: Medical Plan: Avoid fried foods, chicken skin, eggs, butter margarine, pastries and meat. Be it pork or beef they have a lot of cholesterol LDL goal of less than 130 and triglyceride of less than 150 Plan History of Present Illness The patient is a 40-year-old female presenting for a follow-up visit to manage obesity and hypothyroidism. The patient has been experiencing obesity and has noted a weight loss of 17 pounds while on Tirzepatide. She reports no nausea or adverse effects from the medication, and the current dose is maintained as long as weight loss continues. The patient has a history of hypothyroidism, which is currently managed with thyroid medication. Her thyroid function was reported as normal in recent blood work. In December, blood work indicated mild anemia, but electrolytes, liver function, and blood sugar levels were normal. The patient is also known to have hyperlipidemia, with an LDL cholesterol level of 152 mg/dL. Health Maintenance - Weight management with Tirzepatide and lifestyle modifications - Cholesterol management with a goal of LDL less than 130 mg/dL and triglycerides less than 150 mg/dL Social History - Exercise: Encouraged to increase physical activity as weight decreases Review of Systems - General: Reports weight loss of 17 pounds, denies nausea Physical Exam Results - Labs: Mild anemia noted in December, normal electrolytes, liver function, and blood sugar levels, LDL cholesterol at 152 mg/dL, normal thyroid function Plan The patient will continue on Tirzepatide for weight management, with the current dose maintained as long as weight loss is observed. If weight loss plateaus, the dose may be adjusted. Thyroid medication will be continued as the thyroid function is stable. For hyperlipidemia, the goal is to reduce LDL cholesterol to less than 130 mg/dL and triglycerides to less than 150 mg/dL. A referral to a weight management program has been made to support ongoing weight loss efforts. Patient was informed and verbally consented to the use of an ambient scribe for clinic note documentation during this visit. Discussion Notes I discussed with the patient the continuation of Tirzepatide for weight management, emphasizing the importance of maintaining the current dose as long as weight loss continues. We also reviewed the stability of her thyroid function and the need to continue her current thyroid medication. For her hyperlipidemia, I explained the target LDL and triglyceride levels and the importance of achieving these goals. A referral to a weight management program was made to further support her weight loss journey. Patient Instructions - Continue taking Tirzepatide as prescribed and monitor weight loss. - Maintain current thyroid medication regimen. - Follow the cholesterol management plan to achieve target LDL and triglyceride levels. - Increase physical activity as weight decreases. - Attend the weight management program as referred. Orders: Referrals Medical Weight Management Referral E66.01 - Morbid (severe) obesity due to excess calories, Z68.41 - Body mass index [BMI] 40.0-44.9, adult Medications: Refilled tirzepatide (weight loss) (Zepbound) 5 mg (0.5 mL) subcut QWEEK 2 mL 0RF
== END 2025-06-20 15:41 | disposition home or self-care (01) ==
LOC: HO.HMCH 14:41
PROVIDERS: PCP Internal Medicine; Visit Provider Internal Medicine
DX: E66.01 Morbid (severe) obesity due to excess calories (principal); Z68.41 Body mass index [BMI] 40.0-44.9, adult; E03.9 Hypothyroidism, unspecified; E78.00 Pure hypercholesterolemia, unspecified

== ENCOUNTER 2025-07-05 08:08 | Outpatient (AMB) | payer OTHER, SELFPAY ==
--- NOTE | 2025-07-05 08:19 | A.OFFPC_ITS ---
Vital Signs 07/05/25 08:20 Height 5 ft 1 in Weight 198 lb 4 oz BMI 37.5 BP 112/60 Blood Pressure Location Lt brachial Position Sitting Pulse 61 Pulse Source Pulse Oximeter Temp 97.3 F Temp Source Temporal Artery Scan Pulse Oximetry (%) 99 Oxygen Delivery Method Room Air Intake Visit Reasons: f/u obesity Intake Note: Patient is here to follow up on Obesity. Communications Billing Analyst Required: No Assembling Machine Operator: Not Required per policy Accompanied by: Self / Same As Patient Allergies No Known Allergies (No Known Allergies*) Allergy (Verified 07/05/25 08:35) Medication List - Last Reconciled 07/05/25 by Sonja Tian PA-C levothyroxine 137 mcg PO DAILY tirzepatide (weight loss) (Zepbound) 5 mg (0.5 mL) subcut QWEEK Tobacco use date assessed: 07/05/25 Dental Screening Dental Screen Date: 06/20/25 HPI f/u obesity HPI Details 40-year-old female with past medical his tory of hypothyroid and obesity last seen 05/2025 coming in for follow up. Presenting with weight management concerns. Since April, she has lost 19 pounds, reducing her weight from 217 to 198 pounds. She has lost 2 lb in the last 2 weeks. She started a medication regimen in April, initially at 2.5 mg, increased to 5 mg, but reports persistent hunger three days after administration. No adverse effects such as nausea, vomiting, constipation, or diarrhea have been noted. The patient follows a healthy diet and exercises regularly, including walking with her dogs. Previous blood work in March was normal; a repeat test is planned to monitor liver function. [facility] Medical History Morbid obesity BMI 39.0-39.9,adult COVID-19 virus infection Hypercholesterolemia Obesity Hypothyroid Surgical History H/O abdominoplasty H/O breast augmentation History of tubal ligation Family History Mother No problems noted. Father Diabetes HTN (hypertension) Brother No problems noted. Sister Breast cancer, Onset Age: 30 Son No problems noted. Son No problems noted. Son No problems noted. Son No problems noted. Son No problems noted. Daughter No problems noted. 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 Sexual orientation: Straight/Heterosexual Gender identity: Female Cognitive needs: No Hearing needs: No Vision needs: No Questionnaire Thrive Questionnaire Date Thrive assessed: 03/10/25 I am a: Patient What is your living situation today?: I have a steady place to live Within the past 12 months, did the food you bought not last and you didn't have the money to get more?: Never true Within the past 12 months, did you worry whether your food would run out before you got money to buy more?: Never true Do you have trouble paying for medicines?: No Do you have trouble getting transportation to medical appointments?: No Do you have trouble paying your heating and electricity bill?: No Do you have trouble taking care of your child, family member or friend?: No Do you have trouble with day-to-day activities such as bathing, preparing meals, shopping, managing finances, etc.?: No Are you currently unemployed and looking for a job?: No Are you interested in more education?: No Please select the resources that you would like help with: None Currently or been in a relationship where the following occur: No concerns reported THRIVE Score: 0 WILI-7 AMB Questionnaire WILI-7 Date WILI - 7 assessed: 05/02/25 Source: Developed by Drs. Anthony Garrett, Maricarmen Hendrix, Angelo Davidson and colleagues, with an educational ambrosio from [employer]. Review of Systems Const Denies body aches, Denies chills, Denies fever(s), Denies headache(s) and Denies poor appetite Eyes Reports no additional complaints ENT Denies dizziness and Denies headache(s) Card Denies chest pain, Denies edema, Denies irregular heart rhythm, Denies lightheadedness and Denies dyspnea Resp Denies cough and Denies dyspnea GI Denies abdominal pain, Denies nausea and Denies vomiting Reports no additional complaints Musc Reports no additional complaints and Denies abnormal gait Skin/Breast Reports system reviewed and no additional complaints, except as documented Neuro Denies abnormal gait, Denies dizziness and Denies headache(s) Psych Reports no additional complaints Physical exam (Primary Care) Vital Signs: Last Vital Signs Temp 97.3 F 07/05/25 08:20 Pulse 61 07/05/25 08:20 BP 112/60 07/05/25 08:20 Pulse Ox 99 07/05/25 08:20 Oxygen Delivery Method Room Air 07/05/25 08:20 BMI result Body Mass Index 37.5 Tobacco/Smoking Status: Tobacco use Status Tobacco use date assessed 07/05/25 07/05/25 08:23 Patient Tobacco Use Status Never used Tobacco 07/05/25 08:23 e-Cigarette/Vaping Use Never Used 07/05/25 08:23 Thrive Assessment: Date of Thrive Assessment Date Thrive assessed 03/10/25 07/05/25 08:23 Currently or been in a relationship where the following occur: No concerns reported Const General: cooperative, healthy appearing, comfortable and no acute distress Orientation/consciousness: patient oriented x3 HENMT Head: Yes normocephalic Ears: hearing grossly normal bilaterally General nose exam: Normal external nose present Eyes General: appearance normal, both eyes and all related structures Conjunctivae: conjunctivae normal Neck Neck: Yes full ROM and Yes no lymphadenopathy Resp Effort & Inspection: normal respiratory effort Auscultation: clear to auscultation bilaterally, no crackles, no rales, no rhonchi and no wheezes Cardio Rate: regular rate Rhythm: regular rhythm Skin General skin exam: no rashes or lesions noted Neuro General: patient oriented x3 Gait exam (Neuro): Normal gait present Extrem General: Yes normal to inspection, Yes full ROM and No edema Psych Affect: normal affect Attitude: cooperative Insight: Good insight present (Psych) Judgement: Good judgement present (Psych) Coding Level of Care Code Est Pt Level 3 (26145) Diagnoses Hypercholesterolemia E78.00 Class 3 severe obesity due to excess calories with serious comorbidity and body mass index (BMI) of 40.0 to 44.9 in adult E66.01; Z68.41 Obesity type: due to excess calories Obesity classification: adult class 3 (BMI >= 40) Serious obesity comorbidity presence: with serious comorbidity Body mass index: BMI 40.0-44.9 Assessment & Plan Assessment & Plan (1) Hypercholesterolemia: Code(s): E78.00 - Pure hypercholesterolemia, unspecified Category: Medical Plan: Avoid foods that are high in cholesterol such as red meat, fried foods, eggs and baked goods. Triglyceride goal of less than 150 and LDL goal of less than 130. (2) Obesity: Code(s): E66.9 - Obesity, unspecified Category: Medical Qualifiers: Obesity type: due to excess calories Obesity classification: adult class 3 (BMI >= 40) Serious obesity comorbidity presence: with serious comorbidity Body mass index: BMI 40.0-44.9 Qualified Code(s): E66.01 - Morbid (severe) obesity due to excess calories; Z68.41 - Body mass index [BMI]40.0- 44.9, adult Plan: The patient will continue with the current medication regimen, with plans to increase the dose to 7.5 mg after the current cycle to enhance efficacy. Blood work is scheduled to monitor liver function, ensuring no adverse effects from the medication. The patient is advised to maintain her healthy diet and regular exercise routine, which have contributed to her weight loss success. Plan This note was constructed using voice recognition software. While every effort has been made to ensure accuracy and punch box tender, still areas may have been included sometimes these areas may affect the content or meeting of the given symptoms. Total time spent caring for the patient today was 15 minutes. This includes time spent before the visit reviewing the chart, time spent during the visit, and time spent after the visit and documentation. Patient was informed and verbally consented to the use of an ambient scribe for clinic note documentation during this visit. Orders: Orders 2 Comprehensive Met. Panel Today E66.01 - Morbid (severe) obesity due to excess calories, Z68.41 - Body mass index [BMI] 40.0-44.9, adult
[2025-07-05 08:20] VITALS: BP 112/60; PULSE 61; TEMP 36.3; O2SAT 99; BMI 37.5
== END 2025-07-05 08:59 | disposition home or self-care (01) ==
LOC: HO.HMCH 08:11
PROVIDERS: PCP Internal Medicine
DX: E78.00 Pure hypercholesterolemia, unspecified (principal); E66.01 Morbid (severe) obesity due to excess calories; Z68.41 Body mass index [BMI] 40.0-44.9, adult

== ENCOUNTER 2025-07-06 13:56 | Outpatient (AMB) | payer OTHER, SELFPAY ==
[2025-07-06 13:59] VITALS: BP 100/56; PULSE 78; TEMP 36.8; O2SAT 99; BMI 38.0
--- NOTE | 2025-07-06 13:59 | MHC.OFFWIV ---
Intake Vital Signs 07/06/25 13:59 Height 5 ft 1 in Weight 201 lb 6 oz BMI 38.0 BP 100/56 L Blood Pressure Location Lt brachial Position Sitting Pulse 78 Pulse Source Pulse Oximeter Temp 98.3 F Temp Source Oral Pulse Oximetry (%) 99 Oxygen Delivery Method Room Air Intake Visit Reasons: EP UTI? Patient Tobacco Use Status: Never used Tobacco Senior Formulation Scientist Required: No Is last menstrual period known: Yes Last menstrual period: 06/29/25 Post menopausal: No Patient : No Allergies No Known Allergies (No Known Allergies*) Allergy (Verified 07/06/25 14:12) Do you need a note to return to daycare/school/sports/work: No HPI HPI Comments History of Present Illness Details History - The patient is a 40-year-old female presenting with symptoms suggestive of a urinary tract infection. - She reports discomfort and crampy sensations upon waking, leading her to take Simpa. - Symptoms include frequent urination and malodorous urine. - No hematuria, fever, or back pain reported. - The patient has experienced four urinary tract infections in the past two years. - Previous infections were caused by Escherichia coli, sensitive to cephalosporins. Physical Exam General: Cooperative, healthy appearing, uncomfortable, no acute distress and well developed Orientation: Patient oriented x3 Limitations: No limitations Head: Normal to inspection Ears: Hearing grossly normal bilaterally Face and sinus: Normal facial exam Neck: Normal visual inspection and Yes full ROM Respiratory: Normal respiratory effort and able to speak in complete sentences. Skin: No rashes or lesions noted Neuro: Patient oriented x3 [facility] Medical History Morbid obesity BMI 39.0-39.9,adult COVID-19 virus infection Hypercholesterolemia Obesity Hypothyroid Surgical History H/O abdominoplasty H/O breast augmentation History of tubal ligation Family History Mother No problems noted. Father Diabetes HTN (hypertension) Brother No problems noted. Sister Breast cancer, Onset Age: 30 Son No problems noted. Son No problems noted. Son No problems noted. Son No problems noted. Son No problems noted. Daughter No problems noted. 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 Sexual orientation: Straight/Heterosexual Gender identity: Female Cognitive needs: No Hearing needs: No Vision needs: No Female Reproductive History Menstrual Date of last menstrual period: 06/29/25 Review of Systems Const All systems reviewed & are unremarkable except as noted in HPI and below Physical Exam Vital Signs: Last Vital Signs Temp 98.3 F 07/06/25 13:59 Pulse 78 07/06/25 13:59 BP 100/56 L 07/06/25 13:59 Pulse Ox 99 07/06/25 13:59 Oxygen Delivery Method Room Air 07/06/25 13:59 BMI result Body Mass Index 38.0 Results AMB Urinalysis, Automated UA Leukoctes 500 Jae/uL Last Edit by Flor Terry MA on 07/06/25 14:20 UA Nitrite Positive Last Edit by Flor Terry MA on 07/06/25 14:20 UA Urobilinogen 8 mg/dL Last Edit by Flor Terry MA on 07/06/25 14:20 UA Protein 100 mg/dL Last Edit by Flor Terry MA on 07/06/25 14:20 UA pH 5.0 Last Edit by Flor Terry MA on 07/06/25 14:20 UA Blood 200 Ross/uL Last Edit by Flor Terry MA on 07/06/25 14:20 UA Specific [place] 1.030 Last Edit by Flor Terry MA on 07/06/25 14:20 UA Ketone Positive Last Edit by Flor Terry MA on 07/06/25 14:20 UA Bilirubin 4 mg/dL Last Edit by Flor Terry MA on 07/06/25 14:20 UA Glucose 250 mg/dL Last Edit by Flor Terry MA on 07/06/25 14:20 Assessment & Plan Assessment & Plan (1) UTI (urinary tract infection): Code(s): N39.0 - Urinary tract infection, site not specified Qualifiers: Urinary tract infection type: acute cystitis Hematuria presence: without hematuria Qualified Code(s): N30.00 - Acute cystitis without hematuria Plan: Plan Patient was informed and verbally consented to the use of an ambient scribe for clinic note documentation during this visit. 1. Urinary Tract Infection (Uti) - Treatment with cefuroxime every 12 hours for five days is planned. - Prescription to be filled at [facility] in [place]. Orders: Orders AMB Urinalysis Automated Today Z13.9 - Encounter for screening, unspecified Medications: New cefuroxime axetil 500 mg PO Q12H 10 tabs 0RF Coding Level of Care Code Est Pt Level 3 (10140) Diagnoses Acute cystitis without hematuria N30.00 Urinary tract infection type: acute cystitis Hematuria presence: without hematuria
== END 2025-07-06 14:41 | disposition home or self-care (01) ==
PROVIDERS: PCP Internal Medicine; Visit Provider Physician Assistant
DX: Z13.9 Encounter for screening, unspecified (principal); N30.00 Acute cystitis without hematuria

== ENCOUNTER → 2025-07-06 13:56 | Outpatient (BNVA) | payer OTHER, SELFPAY | PROVIDERS: PCP Internal Medicine; Visit Provider Physician Assistant | DX: N30.00 Acute cystitis without hematuria (principal) | CPT/HCPCS: 81003 ==

== ENCOUNTER 2025-07-16 06:52 | Outpatient (REF) | payer OTHER, SELFPAY ==
--- OUTSIDE RECORDS SUMMARY | 2025-07-16 06:55 | XMS_ITS | Clinical Summary ---
Author Organization [facility] Address [address] [place] [phone] Phone Care Team Providers Care Mail Handlers Supervisor Name Role Phone Pcp, Unknown Primary Care Provider Unavailabl e Encounters Date Type Department Care Team Description 04/30/2025 9:49 AM EDT - 04/30/2025 11:59 PM EDT Hospital Encounter [facility] [address] [place] [address] Pavan Noble MD, MPH Discharge Disposition: Home or Self Care from Last 3 Months Immunizations Immunization Administration Dates Next Due MMR 04/30/2025 Tdap 08/05/2017 Varicella 04/30/2025 Social History Tobacco Use Types Packs/Day Years Used Date Smoking Tobacco: Never Assessed Education Answer Date Recorded Are you interested in more education? Not on musa e 04/03/2025 Are you concerned about learning? Not on file 04/03/2025 No 04/03/2025 No 04/03/2025 Digital Access Answer Date Recorded No 04/03/2025 No 04/03/2025 Reliable internet access at home? Not on file 04/03/2025 Device with a working camera? Not on file Comments Unknown Sex and Gender Information Value Date Recorded Sex Assigned at Not on file Legal Sex Female 8:05 AM EDT Gender Identity Not on file Sexual Orientation Not on file Plan of Treatment Upcoming Encounters Date Type Department Care Team (Late st Contact Info) Description 09/14/2025 8:00 AM EDT Office Visit [facility] [address] [place] [address] Mary Rosales MD [address] [facility], [address] [place] [address] Health Maintenance Due Date Last Done Comments DEPRESSION SCREENING 1999 SMOKING Hx and SMOKELESS TOB ACCO SCREENING 2000 HEPATITIS C SCREENING 2005 HIV ONE-TIME SCREENING (18-6 5 YEARS) 2005 PAP SMEAR 2008 COVID-19 VACCINE (2023-2 5 season) 2024 Adult Td,Tdap Booster 08/05/2027 08/05/2017 HEPATITIS A VACCINES Aged Out No long er eligible based on patient's age to complete this topic HIB VACCINES Aged Out No longer eligi ble based on patient's age to complete this topic MENINGOCOCCAL VACCINES (ACWY) Aged Out No longer eligible based on patient's age to complete this topic MENINGOCOCCAL VACCINES (B) Aged Out N o longer eligible based on patient's age to complete this topic PNEUMOCOCCAL VACCINES (0-49 years) Aged Out No longer eligible based on patient's age to complete this topic Medical Devices Not on file Procedures Procedure Name Priority Date/Time Associated Diagnosis Comments T SPOT TB TEST Routine 04/30/2025 9:55 AM EDT Encounter for occupational health examination from Last 3 Months Results * T spot TB test (04/30/2025 9:55 AM EDT) T-SPOT.TB Negative Negative [facility] Comment: (NOTE) A negative test result does not exclude the possibility of exposure to or infection with Mycobacterium tuberculosis (M. tuberculosis). Patients with recent exposure to TB infected individuals exhibiting a negative T-SPOT.TB result should be considered for retesting within 6 weeks or if other relevant clinical symptoms indicate. Results from T-SPOT.TB testing must be used in conjunction with each individual's epidemiological history, current medical status, and results of other diagnostic evaluations. The T-SPOT.TB test is qualitative and results are reported as positive, borderline, or negative, given that the test controls perform as expected. In line with the Centers for Disease Control and Prevention's 2010 recommendation to report quantitative measurements alongside the qualitative result, the laboratory provides spot counts for informational purposes only. The T-SPOT.TB test should not be interpreted as a quantitative test. Panel A Spot Count Corrected For Neg Control 0 [facility] Panel B Spot Count Corrected For Neg Control 1 [facility] Negative Control Passed [facility] [employer] Positive Control Passed [facility] Comment: (NOTE) For additional information, please refer to http://education.[employer]/faq/BGM502 (This link is being provided for informational/ educational purposes only.) Blood 04/30/2025 9:55 AM EDT 04/30/2025 9:58 AM EDT us Pavan Noble MD, MPH LAB BLOOD ORDERABLES Fin al Result [facility] [id number] [place], [place] from Last [address] [place] [address] EMPL[employer]YEES [employer] [facility] [employer]YEES FAMILY EM[employer]OYEES [employer] [place] [id number] [employer] Care Teams Mail Handlers Supervisor Relationship Specialty Start Date End Date Pcp, Unknown PCP - General 04/30/25 Additional Source Comments The information contained in this document represents components of the legal health record. It is not the complete legal health record.[facility]
[2025-07-16 08:21] LABS: Appearance Urine Cloudy; Glucose Urine UA Negative (Negative); PH 5.5 (5.0-9.0); Specific Gravity - Urine >= 1.030 (1.005-1.025); UMIC TRIGGER UACC YES
[2025-07-16 08:24] LABS: Alanine Aminotransferase 23 U/L (0-31); Albumin Level 4.4 g/dL (3.5-5.0); Alkaline Phosphatase 58 U/L (39-117); Anion Gap 13 (12-20); Aspartate Amino Transferase 25 U/L (5-31); Blood Urea Nitrogen 15 mg/dL (9-16); Calcium 9.3 mg/dL (8.4-10.2); Carbon Dioxide 24 mmol/L (22-29); Chloride 108 mmol/L (96-108); Estimated Glomerular Filt Rate > 60; Potassium 4.1 mmol/L (3.3-5.1); Sodium 141 mmol/L (135-145); Total Protein 7.7 g/dL (6.5-8.0)
[2025-07-16 08:42] LABS: UACC Culture Trigger YES
[2025-07-16 08:43] LABS: HBS Num1 276.44 mIU/mL (0-7.99); HBc Num1 0.10 S/CO (0.00-0.79); HBsAGNum1 0.41 S/CO (0.00-0.99); Hepatitis B Surface Antigen Negative (Negative); ~Hepatitis B Surface Antibody REACTIVE (Nonreactive)
== END 2025-07-16 06:53 | disposition home or self-care (01) ==
LOC: HO.LAB 06:52
PROVIDERS: PCP Internal Medicine; Visit Provider Internal Medicine
DX: Z02.0 Encounter for examination for admission to educational institution (principal); E66.01 Morbid (severe) obesity due to excess calories; R30.0 Dysuria; R39.9 Unspecified symptoms and signs involving the genitourinary system; Z68.41 Body mass index [BMI] 40.0-44.9, adult
CPT/HCPCS: 36415; 80053; 81001; 81003; 86704; 86706; 87086; 87340

== ENCOUNTER 2025-09-11 08:19 | Outpatient (AMB) | payer OTHER, SELFPAY ==
[2025-09-11 08:25] VITALS: BP 110/70; PULSE 80; TEMP 36.2; O2SAT 99; BMI 34.6
--- NOTE | 2025-09-11 08:25 | MHC.PC.OV ---
Vital Signs 09/11/25 08:25 Height 5 ft 1 in Weight 183 lb 6 oz BMI 34.6 BP 110/70 Blood Pressure Location Lt brachial Position Sitting Pulse 80 Pulse Source Pulse Oximeter Temp 97.1 F Temp Source Temporal Artery Scan Pulse Oximetry (%) 99 Oxygen Delivery Method Room Air Intake Visit Reasons: hypothryoid Allergies No Known Allergies (No Known Allergies*) Allergy (Verified 09/11/25 08:27) Tobacco use date assessed: 09/11/25 Dental Screening Dental Screen Date: 09/11/25 Did you have a dental visit in the last 12 months?: Yes Did you have a dental problem in the last 6 months where you did not have access to dental care?: No Was dental information given to patient?: Patient has dentist HPI hypothryoid HPI Details month, sore throat, no fever, children sick also, , itchiness, had diarrhea 2 weeks ago PFSH Medical History Morbid obesity BMI 39.0-39.9,adult COVID-19 virus infection Hypercholesterolemia Obesity Hypothyroid Surgical History H/O abdominoplasty H/O breast augmentation History of tubal ligation Family History Mother No problems noted. Father Diabetes HTN (hypertension) Brother No problems noted. Sister Breast cancer, Onset Age: 30 Son No problems noted. Son No problems noted. Son No problems noted. Son No problems noted. Son No problems noted. Daughter No problems noted. 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 1. Little interest or pleasure in doing things: not at all 2. Feeling down, depressed, or hopeless: not at all 3. Trouble falling or staying asleep, or sleeping too much: not at all 4. Feeling tired or having little energy: several days 5. Poor appetite or overeating: not at all 6. Feeling bad about yourself - or that you are a failure or have let yourself or your family down: several days 7. Trouble concentrating on things, such as reading the newspaper or watching television: not at all 8. Moving or speaking so slowly that other people could have noticed. Or the opposite - being so fidgety or restless that you have been moving around a lot more than usual: not at all 9. Thoughts that you would be better off or of hurting yourself in some way: not at all Total score: 2 Depression Screening Interpretation: Positive Depression Screening Done: Yes Source: Developed by Drs. Anthony Garrett, Maricarmen Hendrix, Angelo Davidson and colleagues, with an educational ambrosio from [employer]. Thrive Questionnaire Date Thrive assessed: 03/10/25 I am a: Patient What is your living situation today?: I have a steady place to live Within the past 12 months, did the food you bought not last and you didn't have the money to get more?: Never true Within the past 12 months, did you worry whether your food would run out before you got money to buy more?: Never true Do you have trouble paying for medicines?: No Do you have trouble getting transportation to medical appointments?: No Do you have trouble paying your heating and electricity bill?: No Do you have trouble taking care of your child, family member or friend?: No Do you have trouble with day-to-day activities such as bathing, preparing meals, shopping, managing finances, etc.?: No Are you currently unemployed and looking for a job?: No Are you interested in more education?: No Please select the resources that you would like help with: None Currently or been in a relationship where the following occur: No concerns reported THRIVE Score: 0 AUDIT C Alcohol Use Questionnaire (AUDIT-C) 1. How often do you have a drink containing alcohol?: Never 3. How often do you have six or more drinks on one occasion?: Never Total Score: 0 WILI-7 AMB Questionnaire WILI-7 Date WILI - 7 assessed: 05/02/25 Feeling nervous, anxious, or on edge: 0 = Not at all Not being able to stop or control worryin = Not at all Worrying too much about different things: 0 = Not at all Trouble relaxin = Several days Being so restless that it is hard to sit still: 0 = Not at all Becoming easily annoyed or irritable: 0 = Not at all Feeling afraid as if something awful might happen: 0 = Not at all Total WILI-7 score (0-4 normal; 5-9 mild; 10-14 moderate; 15-21 severe): 1 Source: Developed by Drs. Anthony Garrett, Maricarmen Hendrix, Angelo Davidson and colleagues, with an educational ambrosio from [employer]. Physical exam (Primary Care) Vital Signs: Last Vital Signs Temp 97.1 F 09/11/25 08:25 Pulse 80 09/11/25 08:25 BP 110/70 09/11/25 08:25 Pulse Ox 99 09/11/25 08:25 Oxygen Delivery Method Room Air 09/11/25 08:25 BMI result Body Mass Index 34.6 Tobacco/Smoking Status: Tobacco use Status Tobacco use date assessed 09/11/25 09/11/25 08:29 Patient Tobacco Use Status Never used Tobacco 09/11/25 08:29 e-Cigarette/Vaping Use Never Used 09/11/25 08:29 PHQ-9: PHQ-9 Score PHQ-9: Total score 2 09/11/25 08:36 Depression Screening Interpretation: Positive Thrive Assessment: Date of Thrive Assessment Date Thrive assessed 03/10/25 09/11/25 08:29 Currently or been in a relationship where the following occur: No concerns reported Const General: alert; No acute distress Eyes Conjunctivae: conjunctivae normal Resp Auscultation: clear to auscultation bilaterally Cardio Rate: regular rate Rhythm: regular rhythm GI Inspection: Yes normal to inspection Extrem General: Yes normal to inspection and No edema Coding Level of Care Code Est Pt Level 4 (89027) Diagnoses Class 3 severe obesity due to excess calories with serious comorbidity and body mass index (BMI) of 40.0 to 44.9 in adult E66.01; Z68.41 Body mass index: BMI 40.0-44.9 Obesity classification: adult class 3 (BMI >= 40) Obesity type: due to excess calories Serious obesity comorbidity presence: with serious comorbidity Acquired hypothyroidism E03.9 Hypothyroidism type: acquired Hypercholesterolemia E78.00 Breast cancer screening by mammogram Z12.31 Acute viral syndrome B34.9 Assessment & Plan Assessment & Plan (1) Obesity: Code(s): E66.9 - Obesity, unspecified Category: Medical Qualifiers: Body mass index: BMI 40.0-44.9 Obesity classification: adult class 3 (BMI >= 40) Obesity type: due to excess calories Serious obesity comorbidity presence: with serious comorbidity Qualified Code(s): E66.01 - Morbid (severe) obesity due to excess calories; Z68.41 - Body mass index [BMI]40.0-44.9, adult Plan: Diet and exercise. Patient follows up with weight management and on tirzepatide (2) Hypothyroid: Code(s): E03.9 - Hypothyroidism, unspecified Category: Medical Qualifiers: Hypothyroidism type: acquired Qualified Code(s): E03.9 - Hypothyroidism, unspecified Plan: Continue with thyroid medication March 2025 last test and therapeutic (3) Hypercholesterolemia: Code(s): E78.00 - Pure hypercholesterolemia, unspecified Category: Medical Plan: Avoid fried foods, chicken skin, eggs, butter margarine, pastries and meat. Be it pork or beef they have a lot of cholesterol March 2025 last blood work (4) Breast cancer screening by mammogram: Code(s): Z12.31 - Encounter for screening mammogram for malignant neoplasm of breast Category: Medical Plan: Reminded patient about mammogram (5) Acute viral syndrome: Code(s): B34.9 - Viral infection, unspecified Category: Medical Plan: Conservative management. For the sore throat can take Cepacol lozenges, discussed about Delsym to help with dry cough so she can rest and advised to increase oral fluids. Patient also can take Tylenol for chills and fever. Plan History of Present Illness The patient is a 40-year-old female presenting for follow-up on multiple chronic conditions including hypercholesterolemia, hypothyroidism, and anemia. The patient has a history of hypercholesterolemia with the last LDL measurement in March 2025 showing a level of 152 mg/dL, which is above the desired level of less than 130 mg/dL. The patient reports adherence to dietary modifications, avoiding fried foods, and acknowledges a family history of hypercholesterolemia, particularly in her father. The patient has been diagnosed with hypothyroidism and is currently on thyroid medication, which was last tested in March and found to be within therapeutic range. The patient reports a history of anemia with the last blood work in December showing mild anemia with hemoglobin at 11.8 g/dL and hematocrit at 36.1%. The patient has a history of Hepatitis B and was last seen in June 2025 for follow-up. The patient experienced dysuria and was treated for a urinary tract infection with cefuroxime after visiting an urgent care center on July 06. Recently, the patient has been experiencing symptoms consistent with a viral upper respiratory infection, including a sore throat and itchiness, but denies fever and cough. Health Maintenance - Mammogram: Scheduled for upcoming months - Vaccinations: Flu shot received for employment requirements Social History - Family: Lives with three children who attend school - Weight Management: Following up with weight management program and on Zepbound - Diet: Avoids fried foods, adheres to dietary modifications for cholesterol management Review of Systems - General: Denies fever, reports sore throat and itchiness - Gastrointestinal: Reports diarrhea two weeks ago lasting one day - Genitourinary: Reports dysuria, treated for urinary tract infection Physical Exam - Respiratory: Regular breathing, no signs of bacterial infection, viral etiology suspected - General: No fever, no abdominal pain, no cough, sore throat present Results - Labs: Hemoglobin 11.8 g/dL, Hematocrit 36.1% (December) - Labs: LDL cholesterol 152 mg/dL (March 2025) Plan Patient was informed and verbally consented to the use of an ambient scribe for clinic note documentation during this visit. 1. Hypercholesterolemia The patient has hypercholesterolemia with an LDL level of 152 mg/dL, which is above the target of less than 130 mg/dL. Dietary modifications are in place, and the patient is advised to continue avoiding fried foods. Given the family history of hypercholesterolemia, monitoring will continue, and further treatment will be considered if necessary. 2. Hypothyroidism The patient is on thyroid medication, which was last tested in March and found to be within therapeutic range. The patient is advised to continue current thyroid medication regimen. 3. Anemia The patient has mild anemia with a hemoglobin level of 11.8 g/dL and hematocrit of 36.1%. Further monitoring of blood levels is recommended to assess the need for intervention. 4. Hepatitis B The patient has a history of Hepatitis B and was last seen in June 2025 for follow-up. Continued monitoring and follow-up appointments are advised. 5. Viral Upper Respiratory Infection The patient is experiencing symptoms consistent with a viral upper respiratory infection, including sore throat and itchiness. Supportive care with fluids and lpof-yur-vhtevgk medications such as Tylenol for muscle aches and Delsym for dry cough is recommended. Discussion Notes During the visit, we discussed the patient's hypercholesterolemia and the importance of dietary modifications, particularly avoiding fried foods, due to her family history. We also reviewed her hypothyroidism management, confirming that her thyroid levels are within the therapeutic range and advising continuation of her current medication. For her anemia, we recommended monitoring her blood levels to determine if further intervention is necessary. We addressed her recent viral upper respiratory infection symptoms, suggesting supportive care with fluids and appropriate tezl-jlb-izngogh medications. Patient Instructions - Continue dietary modifications to manage cholesterol, avoiding fried foods. - Maintain current thyroid medication regimen. - Monitor blood levels for anemia and follow up as needed. - Use supportive care for viral symptoms: fluids, Tylenol for muscle aches, Delsym for dry cough. - Schedule and attend mammogram appointment. Medications: Refilled levothyroxine 137 mcg PO DAILY 90 tabs 2RF tirzepatide (weight loss) (Zepbound) 7.5 mg (0.5 mL) subcut QWEEK 2 mL 0RF
--- OUTSIDE RECORDS SUMMARY | 2025-09-11 08:28 | XMS_ITS | Clinical Summary ---
Author Organization [facility] Address [address] [place] [phone] Phone Care Team Providers Care Lead Net Software Developer Name Role Phone Pcp, Unknown Primary Care Provider Unavailabl e Immunizations Immunization Administration Dates Next Due MMR [...] Care Team (Late st Contact Info) Description 10/03/2025 4:10 PM EST Office Visit [facility] [address] [place] [address] [place] [address] Harrison Dodd MD [address] [facility], [address] [place] [address] [email or web address] Health Maintenance Due Date Last Done Comments DEPRESSION SCREENING 1999 SMOKING Hx and SMOKELESS TOB ACCO SCREENING 2000 HEPATITIS C SCREENING 2005 HIV ONE-TIME SCREENING (18-6 5 YEARS) 2005 PAP SMEAR 2008 INFLUENZA VACCINE (#1) 2025 COVID-19 VACCINE (1 - 2024-2 6 season) 2025 Adult Td,Tdap Booster 08/05/2027 08/05/2017 HEPATITIS A [...] this topic Medical Devices Not on file [place] [address] [place] [address] [employer]YEES FAMILY [facility] [employer] [place] [id number] [place] [address] [employer] [address] [facility] [place] [phone] [employer] [employer] Care Teams Lead Net Software Developer Relationship Specialty Start Date End Date Pcp, Unknown PCP - General 04/30/25 Additional Source Comments The information contained in this document represents components of the legal health record. It is not the complete legal health record.[facility]
== END 2025-09-11 08:45 | disposition home or self-care (01) ==
LOC: HO.HMCH 08:20
PROVIDERS: PCP Internal Medicine; Visit Provider Internal Medicine
DX: E66.01 Morbid (severe) obesity due to excess calories (principal); Z68.41 Body mass index [BMI] 40.0-44.9, adult; E03.9 Hypothyroidism, unspecified; E78.00 Pure hypercholesterolemia, unspecified; Z12.31 Encounter for screening mammogram for malignant neoplasm of breast; B34.9 Viral infection, unspecified

== ENCOUNTER 2025-10-08 14:51 | Outpatient (REF) | payer OTHER, SELFPAY ==
[2025-10-09 08:15] LABS: HBS Num1 211.29 mIU/mL (0-7.99); HBc Num1 0.11 S/CO (0.00-0.79); HBsAGNum1 0.33 S/CO (0.00-0.99); HIV Num 1 0.06 S/CO (0.00-0.99); Hepatitis B Surface Antigen Negative (Negative); ~Hepatitis B Surface Antibody REACTIVE (Nonreactive)
== END 2025-10-08 14:52 | disposition home or self-care (01) ==
LOC: HO.LAB 14:51
PROVIDERS: PCP Internal Medicine; Visit Provider Internal Medicine
DX: Z11.3 Encounter for screening for infections with a predominantly sexual mode of transmission (principal); Z11.59 Encounter for screening for other viral diseases; Z78.9 Other specified health status; Z11.4 Encounter for screening for human immunodeficiency virus [HIV]
CPT/HCPCS: 36415; 86704; 86706; 87340; 87389

== ENCOUNTER 2025-10-08 14:51 | Outpatient (AMB) | payer OTHER, SELFPAY ==
--- NOTE | 2025-10-08 14:56 | A.OFFVIS_ITS ---
Vital Signs 10/08/25 14:59 Height 5 ft 1 in Weight 174 lb 2.643 oz BMI 32.9 BP 117/68 Blood Pressure Location Lt brachial Position Sitting Pulse 92 Intake Visit Reasons: Unspecified Viral Hep B Intake Note: Rosetta presents in the office as a new patient unspecified Viral Hep C. CC: She states right now she has a stomach bug so she has some pains - she states that maybe symptoms with the zepbound and she has been doing it since June. She does not notice any bad symptoms due to the medication. 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 History obtained from the patient, who states that she needed basic immunization serology done as part of her new employment. This showed positive hepatitis-B surface antigen in March. She does report that she had the vaccine 2 weeks before getting these blood test done. However, she also got a tattoo 1 month before this blood work, so she has been quite worried. Of note, repeat hepatitis serology in June consistent with prior immunization, negative surface antigen. [facility] Medical History Morbid obesity BMI 39.0-39.9,adult COVID-19 virus infection Hypercholesterolemia Obesity Hypothyroid Surgical History H/O abdominoplasty H/O breast augmentation History of tubal ligation Family History Mother No problems noted. Father Diabetes HTN (hypertension) Brother No problems noted. Sister Breast cancer, Onset Age: 30 Son No problems noted. Son No problems noted. Son No problems noted. Son No problems noted. Son No problems noted. Daughter No problems noted. 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 Sexual orientation: Straight/Heterosexual Gender identity: Female Cognitive needs: No Hearing needs: No Vision needs: No Review of Systems Const All systems reviewed & are unremarkable except as noted in HPI and below Physical Exam Exam Exam: No apparent distress Nonicteric Abdomen soft, nondistended Alert and oriented x3, normal gait Vital Signs: Last Vital Signs Pulse 92 10/08/25 14:59 BP 117/68 10/08/25 14:59 BMI result Body Mass Index 32.9 Assessment & Plan Assessment & Plan (1) Need for hepatitis B screening test: Code(s): Z11.59 - Encounter for screening for other viral diseases Category: Medical (2) Hepatitis B immune: Code(s): Z78.9 - Other specified health status Category: Medical Plan Reviewed with the patient that based on negative core antibody, this was most likely a false-positive hep B surface antigen in the context of recent vaccination. Will run 1 more set of hepatitis-B serology as patient remains anxious due to recent history of a tattoo. She also requests HIV testing, that has also been ordered. If results are normal, these will be communicated over the portal. Otherwise, an appointment will be set up if has actionable findings. Orders: Orders Hepatitis B Core Antibody Today Z11.59 - Encounter for screening for other viral diseases, Z78.9 - Other specified health status HIV Ab/Ag Today Z11.3 - Encounter for screening for infections with a predominantly sexual mode of transmission Hepatitis B Surface Antigen Today Z11.59 - Encounter for screening for other viral diseases, Z78.9 - Other specified health status Hepatitis B Surface Antibody Today Z11.59 - Encounter for screening for other viral diseases, Z78.9 - Other specified health status Coding Level of Care Code New Pt Level 3 (75497) Diagnoses Need for hepatitis B screening test Z11.59 Hepatitis B immune Z78.9
[2025-10-08 14:59] VITALS: BP 117/68; PULSE 92; BMI 32.9
--- OUTSIDE RECORDS SUMMARY | 2025-10-09 05:12 | XMS_ITS | Clinical Summary ---
Author Organization [facility] Address [address] [place] [address] [place] [phone] Phone Care Team Providers Care Combination Building Inspector Name Role Phone Pcp, Unknown Primary Care [...] Care Team (Late st Contact Info) Description 11/07/2025 3:50 PM EST Office Visit [facility] [address] [place] [address] [place] [address] Harrison Dodd MD [address] [facility], [address] [place] [address] [email or web address] Health Maintenance Due Date Last Done Comments [...] on patient's age to complete this topic IPV VACCINES Aged Out No longer eligi ble [...] topic Medical Devices Not on file Insurance [facility] [place] [id number] [facility] [employer] [id number] [address] [facility] [employer] [address] [facility] [employer] [address] [facility] [place] [phone] [facility] [employer] Care Teams Combination Building Inspector Relationship Specialty Start Date End Date Pcp, Unknown PCP - General 04/30/25 Additional Source Comments The information contained in this document represents components of the legal health record. It is not the complete legal health record.[facility]
== END 2025-10-08 15:58 | disposition home or self-care (01) ==
LOC: HO.HGI 14:52
PROVIDERS: PCP Internal Medicine; Visit Provider Internal Medicine
DX: Z11.59 Encounter for screening for other viral diseases (principal); Z78.9 Other specified health status
CPT/HCPCS: 99203

== ENCOUNTER 2025-10-19 08:56 | Outpatient (REF) | payer OTHER, SELFPAY | END 2025-10-19 08:57 | disposition home or self-care (01) | LOC: HO.LAB 08:56 | PROVIDERS: PCP Internal Medicine | DX: N30.00 Acute cystitis without hematuria (principal) | CPT/HCPCS: 81003; 87086; 87088; 87186 ==

== ENCOUNTER 2025-10-19 08:56 | Outpatient (AMB) | payer OTHER, SELFPAY ==
--- OUTSIDE RECORDS SUMMARY | 2025-10-19 08:59 | XMS_ITS | Clinical Summary ---
Author Organization [facility] Address [address] [place] [address] [place] [phone] Phone Care Team Providers Care Learning And Development Director Name Role Phone Pcp, Unknown Primary Care [...] Office Visit [facility] [address] [place] [address] [place] [address] Harrison Dodd MD [address] [facility], [address] [place] [address] [email or web address] Health Maintenance Due Date Last Done Comments [...] topic Medical Devices Not on [place] [address] [place] [address] [place] [id number] [facility] [employer] [id number] [facility] [employer] [place] [id number] [facility] [employer] [place] [address] [facility] [employer] FAM[employer] [place] [id number] [facility] [employer] [facility] [employer] [employer] FAMILY Care Teams Learning And Development Director Relationship Specialty Start Date End Date Pcp, Unknown PCP - General 04/30/25 Additional Source Comments The information contained in this document represents components of the legal health record. It is not the complete legal health record.[facility]
[2025-10-19 09:19] VITALS: BP 96/72; PULSE 85; TEMP 36.5; O2SAT 95; BMI 33.4
--- NOTE | 2025-10-19 09:19 | MHC.OFFWIV ---
Intake Vital Signs 10/19/25 09:19 10/19/25 09:27 Height 5 ft 1 in Weight 177 lb BMI 33.4 BP 96/72 104/72 Blood Pressure Location Lt brachial Rt brachial Position Sitting Sitting Pulse 85 Pulse Source Pulse Oximeter Temp 97.7 F Temp Source Oral Pulse Oximetry (%) 95 Oxygen Delivery Method Room Air Intake Visit Reasons: EP UTI? Intake Note: pt presents with concern for UTI c/o tingling sensation with voiding, low abdominal and pubic pressure x1 days, reports recurrent UTI's Patient Tobacco Use Status: Never used Tobacco Allergies No Known Allergies (No Known Allergies*) Allergy (Verified 10/19/25 09:28) Do you need a note to return to daycare/school/sports/work: No HPI HPI Comments History of Present Illness Details History - The patient is a 40 year old female presenting with symptoms consistent with a urinary tract infection. - The patient reported the onset of pain during urination yesterday afternoon, accompanied by a sensation of pressure and a tingling feeling, which led the patient to suspect a urinary tract infection (UTI) due to a history of similar episodes. - The patient took an cwxk-hqg-keznter UTI medication, Uqora, yesterday which provided some relief. - This morning, the patient noted an odor to the urine and experienced an intermittent tingling sensation during urination. - The patient has a history of recurrent UTIs, with approximately four occurrences in the past year. - A prior UTI in April showed resistance to certain antibiotics, requiring a change in medication after the initial treatment failed. - The patient denies any history of kidney stones. - The patient is at the end of the menstrual cycle, which may account for blood found in the urine sample. Review of Systems - Genitourinary: Reports dysuria, urinary pressure, and an intermittent tingling sensation with urination. - Reports malodorous urine. - The patient is at the end of the menstrual period. - Denies hematuria, though it was noted on urinalysis. - Back: Denies low back pain. - Constitutional: Denies fevers. - All other systems were reviewed and are negative. All systems reviewed and are unremarkable except as noted in HPI Physical Exam General: Cooperative, healthy appearing, comfortable, no acute distress and well developed Orientation: Patient oriented x3 Limitations: No limitations Head: Normal to inspection Ears: Hearing grossly normal bilaterally Face and sinus: Normal facial exam Neck: Normal visual inspection and Yes full ROM Respiratory: Normal respiratory effort and able to speak in complete sentences. Skin: No rashes or lesions noted Neuro: Patient oriented x3 [facility] Medical History Morbid obesity BMI 39.0-39.9,adult COVID-19 virus infection Hypercholesterolemia Obesity Hypothyroid Surgical History H/O abdominoplasty H/O breast augmentation History of tubal ligation Family History Mother No problems noted. Father Diabetes HTN (hypertension) Brother No problems noted. Sister Breast cancer, Onset Age: 30 Son No problems noted. Son No problems noted. Son No problems noted. Son No problems noted. Son No problems noted. Daughter No problems noted. 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 Sexual orientation: Straight/Heterosexual Gender identity: Female Cognitive needs: No Hearing needs: No Vision needs: No Physical Exam Vital Signs: Last Vital Signs Temp 97.7 F 10/19/25 09:19 Pulse 85 10/19/25 09:19 BP 104/72 10/19/25 09:27 Pulse Ox 95 10/19/25 09:19 Oxygen Delivery Method Room Air 10/19/25 09:19 BMI result Body Mass Index 33.4 Results AMB Urinalysis, Automated UA Leukoctes 15 Jae/uL Last Edit by Deepika Richards CMA on 10/19/25 09:35 UA Nitrite Negative Last Edit by Deepika Richards CMA on 10/19/25 09:35 UA Urobilinogen 0.2 mg/dL Last Edit by Deepika Richards CMA on 10/19/25 09:35 UA Protein 0 mg/dL Last Edit by Deepika Richards CMA on 10/19/25 09:35 UA pH 6.0 Last Edit by Deepika Richards CMA on 10/19/25 09:35 UA Blood 200 Ross/uL Last Edit by Deepika Richards CMA on 10/19/25 09:35 3+ Deepika Richards 10/19/25 09:35 UA Specific [place] 1.015 Last Edit by Deepika Richards CMA on 10/19/25 09:35 UA Ketone Negative Last Edit by Deepika Richards CMA on 10/19/25 09:35 UA Bilirubin 0 mg/dL Last Edit by Deepika Richards CMA on 10/19/25 09:35 UA Glucose 0 mg/dL Last Edit by Deepika Richards CMA on 10/19/25 09:35 Results Reviewed Results Reviewed: Laboratory Last Values Urine pH (Auto) 6.0 10/19/25 09:34 Specific [place] (Auto) 1.015 10/19/25 09:34 Urine Protein (Auto) 0 mg/dL 10/19/25 09:34 Glucose (UA)(Auto) 0 mg/dL 10/19/25 09:34 Urine Ketones (Auto) Negative 10/19/25 09:34 Urine Blood (Auto) 200 Ross/uL H* 10/19/25 09:34 Urine Nitrite (Auto) Negative 10/19/25 09:34 Urine Bilirubin (Auto) 0 mg/dL 10/19/25 09:34 Urine Urobilinogen (Auto) 0.2 mg/dL 10/19/25 09:34 Leukocyte Esterase (Auto) 15 Jae/uL H 10/19/25 09:34 Assessment & Plan Assessment & Plan (1) UTI (urinary tract infection): Code(s): N39.0 - Urinary tract infection, site not specified Qualifiers: Urinary tract infection type: acute cystitis Hematuria presence: without hematuria Qualified Code(s): N30.00 - Acute cystitis without hematuria Plan: Plan - A prescription for Cefuroxime will be sent to the pharmacy at [facility] in [place] for the treatment of a urinary tract infection. - A urine culture will be performed to confirm the diagnosis and check for antibiotic sensitivities. - The patient will be contacted if the antibiotic needs to be changed based on the culture results. - The patient was advised to discuss the recurrent UTIs, having had about four in the past year, with the primary care provider, Dr. Ze. Patient was informed and verbally consented to the use of an ambient scribe for clinic note documentation during this visit. Orders: Orders Urine Culture Today N39.0 - Urinary tract infection, site not specified AMB Urinalysis Automated Today Z13.9 - Encounter for screening, unspecified Medications: New cefuroxime axetil 500 mg PO Q12H 10 tabs 0RF Coding Level of Care Code Est Pt Level 3 (59108) Diagnoses Acute cystitis without hematuria N30.00 Urinary tract infection type: acute cystitis Hematuria presence: without hematuria
[2025-10-19 09:27] VITALS: BP 104/72
== END 2025-10-19 09:46 | disposition home or self-care (01) ==
PROVIDERS: PCP Internal Medicine; Visit Provider Physician Assistant
DX: N30.00 Acute cystitis without hematuria (principal); Z13.9 Encounter for screening, unspecified

== ENCOUNTER 2025-11-09 07:56 | Outpatient (REF) | payer OTHER, SELFPAY ==
--- OUTSIDE RECORDS SUMMARY | 2025-11-07 15:50 | XMS_ITS | Encounter Summary ---
Author Organization [facility] Address [address] [place] [address] [place] [id number] Phone Care Team Providers Care Production Team Leader Name Role Phone Su Mac MD Primary Care Provider [phone] Reason for Visit * Reason Comments New Patient Annual Exam Encounter Details Date Type Department Care Team (Latest Contact Info) Description 11/07/2025 3:50 PM EST Office Visit [facility] Obstetrics and Gynecology Clinic [address] [place] [address] Harrison Dodd MD [address] [facility], [address] [place] [address] [email or web address] Encounter for gynecological examination without abnormal finding (Primary Dx); LGSIL on Pap smear of cervix; Family history of breast cancer; MARYAN I (cervical intraepithelial neoplasia I) Social History Tobacco Use Types Packs/Day Years Used Date Smoking Tobacco: Never Passive Smoke Exposure: Never Smokeless Tobacco: Never Tobacco Cessation:Counseling Given: Not Answered Alcohol Use Standard Drinks/Week Comments Not Currently 0 (1 standard drink = 0.6 oz pur e alcohol) Education Answer Date Recorded Are you interested in more education? Not on musa e 04/03/2025 Are you concerned about learning? Not on file 04/03/2025 No 04/03/2025 No 04/03/2025 Digital Access Answer Date Recorded No 04/03/2025 No 04/03/2025 Reliable internet access at home? Not on file 04/03/2025 Device with a working camera? 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 Not on file Not on file Not on file documented as of this encounter Last Filed Vital Signs Vital Sign Reading Time Taken Comments Blood Pressure 102/70 11/07/2025 3:49 PM EST Pulse - - Temperature - - Respiratory Rate - - Oxygen Saturation - - Inhaled Oxygen Concentration - - Weight 78 kg (172 lb) 11/07/2025 3:49 PM EST Height 154.9 cm (5' 1 ) 11/07/2025 3:49 PM EST Body Mass Index 32.5 11/07/2025 3:49 PM EST documented in this encounter Progress Notes * Tracey Waldrop MA - 11/07/2025 3:50 PM EST Does the patient agree to a digital sales representative?: Yes Procedure performed requiring digital sales representative: Physical exam/inspection of internal or external genital; physical exam/inspection of breast Tutor Coordinator present for procedure:: Yes * Harrison Dodd MD - 11/07/2025 3:50 PM EST Clinic Note: Annual Exam Encounter Date: 11/07/2025 Subjective: Rosetta Richards is a 40 y.o. No obstetric history on file. who presents for routine annual exam. No LMP recorded. Rosetta has been receiveing [employer] [place] [facility] [place] Now working for [employer] and needs to come here for insurance. Menses are regular. She is followed yearly with mammogram and MRI. She is on zepbound and has lost about 40 lbs. Happy with results. Feels much better Health Maintenance and Preventative Care: Pap last year was abnormal. Had colpo. Will repeat today Immunization History Administered Date(s) Administered COVID-19 (Pre-09/13) Pfizer Vaccine, mRNA, PF 06/12/2021, 07/03/2021, 07/09/2021 Influenza Quadrivalent Adjuvanted Preservative Free IM 09/25/2021 MMR 04/30/2025 Tdap 08/05/2017 Varicella 04/30/2025 Obstetric and Gynecologic History OB History No obstetric history on file. Menstrual History No LMP recorded. Past Histories: Patient Active Problem List Diagnosis MARYAN I (cervical intraepithelial neoplasia I) Family history of breast cancer H. pylori infection Hypercholesterolemia Hypothyroid LGSIL on Pap smear of cervix BMI 39.0-39.9,adult No past medical history on file. No past surgical history on file. No family history on file. Social History Socioeconomic History Marital status: Declined Spouse name: Not on file Number of children: Not on file Years of education: Not on file Highest education level: Not on file Occupational History Not on file Tobacco Use Smoking status: Not on file Smokeless tobacco: Not on file Substance and Sexual Activity Alcohol use: Not on file Drug use: Not on file Sexual activity: Not on file Other Topics Concern Not on file Social History Narrative Not on file No Known Allergies Current Outpatient Medications Ordered in [facility] Medication Sig levothyroxine (SYNTHROID, LEVOTHROID) 137 MCG tablet Take 1 tablet by mouth every morning. ZEPBOUND 7.5 mg/0.5 mL subcutaneous pen INJECT ONE PEN UNDER THE SKIN ONCE WEEKLY Objective: There were no vitals taken for this visit. Gen: Alert, cooperative. Well-appearing on today's exam HEENT: head normocephalic without obvious deformity. Normal dentition. Neck: Trachea midline. No palpable cervical lymphadenopathy noted. Thyroid normal to inspection andpalpation. Cardiovascular: regular rate and rhythm, no audible murmurs Lung: clear to auscultation bilaterally, no wheezing, normal respiratory effort Breast: Normal appearance, no masses or tenderness, no nipple retraction or dimpling bilaterally. No axillary or supraclavicular lymphadenopathy. Well healed periareolar and inframammary scars (lift and augmentation) Abdomen: Soft,non-tender. No masses palpable, no organomegaly. No notable scarring. Extremities: no calf tenderness, discoloration or edema, atraumatic without deformity Skin: Skin color, texture, turgor normal. No rashes or lesions Psych: Mood and affect appropriate. Pelvic: External Genitalia: Normal architecture, without lesions. No inguinal lymphadenopathy. Vagina: Mucosa is pink with normal rugae. No abnormal discharge or lesions. Cervix: Normal appearance, without discharge or lesions. No cervical motion tenderness. Pap smear obtained. Chlamydia not obtained Uterus: Normal size and shape. Non-tender. Mobile Adnexa: No adnexal masses or tenderness bilaterally. 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 pylori infection Overview January 2022 Assessment/Plan: 40 y.o.No obstetric history on file. 1. Screening for sexually transmitted infections -Gonorrhea/Chlamydia not indicated 2. Contraception -TL 3. Health Maintenance and Screening -Reviewed ASCCP guidelines. Pap smear due, yearly pelvic exam. -Reviewed breast self exam and breast self awareness. -Continue to follow with PCP for general medical care Harrison Dodd MD documented in this encounter Plan of Treatment Pending Results Name Type Priority Associated Diagnoses Date /Time Cervical Cancer Screening Pathology and Cytology Routine MARYAN I (cervical intraepithelial neoplasia I) 11/07/2025 4:20 PM EST Pap Test Pathology and Cytology Routine MARYAN I (cervical intraepithelial neoplasia I) 11/07/2025 4:20 PM EST Human Papillomavirus (HPV), Nucleic Acid Amplification Lab Routine MARYAN I (cervical intraepithelial neoplasia I) 11/07/2025 4:20 PM EST documented as of this encounter Visit Diagnoses Diagnosis Encounter for gynecological examination without abnormal finding- Primary LGSIL on Pap smear of cervix Family history of breast cancer Family history of malignant neoplasm of breast MARYAN I (cervical intraepithelial neoplasia I) Mild dysplasia of cervix documented in this encounter Care Teams Production Team Leader Relationship Specialty Start Date End Date Su Mac MD [address] [place] [address] Drive [address] [place] [address] PCP - General Internal Medicine 11/07/25 documented as of this encounter Additional Source Comments The information contained in this document represents components of the legal health record. It is not the complete legal health record.[facility]
--- NOTE | ~2025-11-09 | MM_ITS ---
EXAMINATION: MM SCREENING DIGITAL BREAST TOMOSYNTHESIS, BILATERAL CLINICAL INFORMATION: Screening. Asymptomatic. COMPARISON: Mammography: Comparison is made with relevant avialable priors. TECHNIQUE: Digital mammography is performed in craniocaudal and mediolateral oblique views along with computer-aided detection (CAD). Digital breast tomosynthesis is performed in implant-displaced craniocaudal and implant-displaced mediolateral oblique views along with computer-aided detection (CAD). FINDINGS: There are scattered areas of fibroglandular density. Bilateral prepectoral implants are stable appearing. There are no significant masses, abnormal calcifications, or other abnormalities. MM/MM tomosynthesis screen imp BI IMPRESSION: There are no significant changes from prior study. ASSESSMENT: BI-RADS Category 2: Benign RECOMMENDATION: Routine annual mammography screening. 1 year F/U This patient's information was entered into a reminder system with a target due date for their next mammogram. Electronically signed by: Madhuri Fried DO 11/12/2025 04:26 PM LILIANA
--- OUTSIDE RECORDS SUMMARY | 2025-11-09 07:58 | XMS_ITS | Clinical Summary ---
Author Organization [facility] Address [address] [place] [phone] Phone Care Team Providers Care Implementation Specialist Name Role Phone Su Mac MD Primary Care Provider [phone] Allergies No known active allergies Medications levothyroxine (SYNTHROID, LEVOTHROID) 137 MCG tablet Take 1 tablet by mouth every morning. 09/11/2025 Active ZEPBOUND 7.5 mg/0.5 mL subcutaneous pen INJECT ONE PEN UNDER THE SKIN ONCE WEEKLY 10/17/2025 Active Active Problems Problem Noted Date Diagnosed Date MARYAN I (cervical intraepithelial neoplasia I) Overview (11/07/2025): June 2024. Had normal colpo and bx per her report. Pap 10/2025: Family history of breast cancer 11/07/2025 Overview (11/07/2025): Sister at age 3232 years old from breast cancer. Patient has tested negative for BRCA 1 and 2. Gets mammogram and MRI yearly. Does imaging at [facility]. H. pylori infection 11/07/2025 Overview (11/07/2025): January 2022 Hypercholesterolemia 11/07/2025 Hypothyroid 11/07/2025 LGSIL on Pap smear of cervix 11/07/2025 Overview (11/07/2025): HPV E6/E7 positive. Repeat pap 2024: Class 1 obesity due to exces s calories without serious comorbidity with body mass index (BMI) of 32.0 to 32.9 in adult 11/07/2025 Encounters Date Type Department Care Team Description 11/07/2025 3:50 PM EST Office Visit [facility] Obstetrics and Gynecology Clinic [address] [place] [address] Harrison Dodd MD Encounter for gynecological examination without abnormal finding (Primary Dx); LGSIL on Pap smear of cervix; Family history of breast cancer; MARYAN I (cervical intraepithelial neoplasia I) from Last 3 Months Immunizations Immunization Administration Dates Next Due COVID-19 (Pre-09/13) Pfizer Vaccine, mRNA, PF 07/09/2021,07/03/2021,06/12/2021 Influenza Quadrivalent Adjuv anted Preservative Free IM 09/25/2021 MMR 04/30/2025 Tdap 08/05/2017 Varicella 04/30/2025 Family History Medical History Relation Comments Breast cancer Sister Relation Status Comments Sister Social History Tobacco Use Types Packs/Day Years [...] file Not on file Not on file Last Filed Vital Signs Vital Sign Reading Time Taken Comments Blood Pressure 102/70 11/07/2025 3:49 PM EST Pulse - - Temperature - - Respiratory Rate - - Oxygen Saturation - - Inhaled Oxygen Concentration - - Weight 78 kg (172 lb) 11/07/2025 3:49 PM EST Height 154.9 cm (5' 1 ) 11/07/2025 3:49 PM EST Body Mass Index 32.5 11/07/2025 3:49 PM EST Plan of Treatment Health Maintenance Due Date Last Done Comments TSH LEVEL 1987 DEPRESSION SCREENING 1999 HEPATITIS C SCREENING 2005 HIV ONE-TIME SCREENING (18-65 YEARS) 2005 PAP SMEAR 2008 SCREENING FOR DIABETES 2022 COVID-19 VACCINE (2024- season) 2025 03/28/2025, 07/09/2021, 07/03/2021, Additional history exists Adult Td,Tdap Booster 03/28/2035 03/28/2025, 017 INFLUENZA VACCINE Completed 08/30/2025, 09/25/2021 SMOKING STATUS SCREENING (Once After 26 Yrs) Completed 11/07/2025 HEPATITIS A VACCINES Aged Out No long [...] topic Medical Devices Not on file [place] [address] [place] [address] [place] [id number] [employer] [address] [employer] [place] [address] [employer] [place] [address] [employer] Care Teams Implementation Specialist Relationship Specialty Start Date End Date Po, Su Renee MD [address] [place] [id number] PCP - General Internal Medicine 11/07/25 Additional Source Comments The information contained in this document represents components of the legal health record. It is not the complete legal health record.[facility]
== END 2025-11-09 07:57 | disposition home or self-care (01) ==
LOC: HO.MAMMO 07:56
PROVIDERS: PCP Internal Medicine; Visit Provider Internal Medicine
DX: Z12.31 Encounter for screening mammogram for malignant neoplasm of breast (principal)
CPT/HCPCS: 77063; 77067

== ENCOUNTER → 2025-11-09 08:15 | Outpatient (BNV) | payer OTHER, SELFPAY | PROVIDERS: PCP Internal Medicine; Visit Provider Internal Medicine | DX: Z12.31 Encounter for screening mammogram for malignant neoplasm of breast (principal) | CPT/HCPCS: 77063; 77067 ==